=== PATIENT | female | born 1945 | race Caucasian/White ===

== ENCOUNTER 2020-01-17 14:22 | Outpatient (CLI) | payer MEDICARE, SELFPAY ==
--- NOTE | ~2020-01-17 | MM_ITS ---
EXAMINATION: MM screening logan BI w velvet HISTORY: Screening TECHNIQUE: Craniocaudal and mediolateral oblique 3-D tomosynthesis images were obtained and synthetic 2-D images were generated. CAD analysis was submitted and interpreted. COMPARISON: Comparison to multiple prior studies sequentially, with oldest reviewed study dated 10/21. BREAST PARENCHYMAL COMPOSITION: There are scattered areas of fibroglandular density. FINDINGS: There is no evidence of suspicious mass, calcification, or architectural distortion to sugg est malignancy in either breast. There has been no suspicious interval change. IMPRESSION: 1. No mammographic evidence of malignancy. 2. Recommend routine screening mammography in one year. BI-RADS Category 1: Negative Reviewed, dictated and finalized at location A. BULATORY TECHNOLOGIST
== END 2020-01-17 14:23 | disposition home or self-care (01) ==
LOC: ANHIMG 14:27
PROVIDERS: PCP Family Medicine; Visit Provider Nurse Practitioner Obstetrics & Gynecology
DX: Z12.31 Encounter for screening mammogram for malignant neoplasm of breast (principal)
CPT/HCPCS: 77063; 77067

== ENCOUNTER 2020-07-29 21:41 | Emergency (ER) | payer MEDICARE, SELFPAY ==
--- NOTE | ~2020-07-29 | XR_ITS ---
EXAMINATION: XR finger 3rd LT min 2V INDICATION: Third finger post reduction TECHNIQUE: Three views of the left third finger are obtained. COMPARISON: 2003 hours FINDINGS: The previously described dorsal dislocation at the third proximal interphalangeal joint has been reduced. There is minimal persistent dorsal subluxation of the second middle phalanx with respe ct to the proximal phalanx. There is a triangular defect at the palmar base of the third middle phala nx which may represent the tiny osseous fragment seen on the comparison radiograph. There is slight e xtension at the proximal interphalangeal joint. There is soft tissue swelling of the third finger. IMPRESSION: 1. Reduced dislocation of the third proximal interphalangeal joint with mild persistent dorsal sublux ation and extension at the joint with associated cortical defect at the palmar base of the middle pha lanx, possibly reflecting tendinous avulsion. Orthopedic follow-up is recommended. Reviewed, dictated and finalized at location A. IMPRESSION: 1. Reduced dislocation of the third proximal interphalangeal joint with mild pe rsistent dorsal subluxation and extension at the joint with associated cortical defect at the palmar base of the middle phalanx, possibly reflecting tendinous avulsion. Orthopedic follow-up is recommended.
--- NOTE | ~2020-07-29 | XR_ITS ---
EXAMINATION: XR hand LT min 3V INDICATION: Left hand pain, initial encounter TECHNIQUE: Three views of the left hand are obtained. COMPARISON: None available FINDINGS: There is dorsal dislocation and overriding of the third middle phalanx with respect to the proximal phalanx. Bone alignment is otherwise normal. There is soft tissue swelling of the third fing er. A tiny osseous fragment is seen at the base of the second distal phalanx and the lateral view. 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 Cystic change is noted in the lunate. IMPRESSION: 1. Dorsal dislocation and overriding of the third middle phalanx with respect to the proximal phalanx with possible small fracture. Reviewed, dictated and finalized at location A. IMPRESSION: 1. Dorsal dislocation and overriding of the third middle phalanx with respect t o the proximal phalanx with possible small fracture.
[2020-07-29 21:57] VITALS: BP 190/83; PULSE 79; RESP 18; TEMP 36.8; O2SAT 97
--- NOTE | 2020-07-29 22:31 | ED.UPPEXIN ---
HPI - Extremity Injury (Upper) General Chief Complaint: Extremity Injury, Upper Stated Complaint: left middle finger injury Time Seen by Provider: 07/29/20 22:10 Source: RN notes reviewed History of Present Illness HPI narrative: Patient presents to emergency department from home for left third digit pain. Patient states that it was dark and she is trying to the light switch and she hit her finger on the wall states that she had pain at that time with deformity noted to the third digit she denies any other trauma or injury she denies any numbness or tingling in the extremities or any other symptoms at this time Related Data Home Medications Medication Instructions Recorded Confirmed calcium carbonate-vitamin D3 600 cap PO 03/21/19 09/30/19 mg calcium-200 unit capsule levothyroxine 25 mcg tablet 25 mcg PO DAILY 03/21/19 09/30/19 multivit with 1 tablet PO DAILY 03/21/19 09/30/19 mgougrjd-xefg-RH-lutein 8 mg iron-400 mcg-300 mcg tablet naproxen sodium 220 mg tablet 220 mg PO .COMPLEX 03/21/19 09/30/19 omeprazole 20 mg capsule,delayed 20 mg PO DAILY 03/21/19 09/30/19 release Allergies Allergy/AdvReac Type Severity Reaction Status Date / Time adhesive tape Allergy Unknown Unknown Verified 07/22/20 10:42 Sulfa (Sulfonamide Allergy Unknown Unknown Verified 07/22/20 10:42 Antibiotics) Review of Systems Review of Systems: Narrative: Gen.: Denies fevers or chills Musculoskeletal: See HPI Neuro: Denies numbness, tingling, weakness Skin: Denies rash Endo: Denies DM PMFSH Past Medical History Medical History BMI 27.0-27.9,adult ILD (interstitial lung disease) PND (post-nasal drip) Family History Family History Mother Carcinoma of colon Sibling Patient's sister is in good health Father No problems noted. Sibling , blood clot No problems noted. 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 Following commands, speech normal, no focal deficits SKIN:: Warm, dry. Normal Color no rash or lesions Course Course Emergency Course: I discussed with the patient the need for reduction patient states that she is fine with doing the reduction with no digital block at this time and request no pain medication at this time Discussed with Dr. Dobbs presentation work-up agrees with plan for the follow-up in the office at this time Discussed with patient results of workup and diagnosis. Discussed need for follow-up with primary care, proper use of medication, and reasons to return to the emergency department. Patient understands and agrees to current treatment plan. Patient takes Aleve daily and will continue to take for pain Vital Signs Vital signs: Vital Signs Temperature 98.3 F 07/29/20 21:57 Pulse Rate 79 07/29/20 21:57 Respiratory Rate 18 07/29/20 21:57 Blood Pressure 190/83 H 07/29/20 21:57 Pulse Oximetry 97 07/29/20 21:57 Temperature 98.3 F 07/29/20 21:57 Pulse Rate 79 07/29/20 21:57 Respiratory Rate 18 07/29/20 21:57 Blood Pr
[2020-07-29 23:09] VITALS: BP 165/89; PULSE 71; RESP 16; TEMP 36.3; O2SAT 97
== END 2020-07-29 23:10 | disposition home or self-care (01) ==
PROVIDERS: Emergency Provider Emergency Medicine; PCP Family Medicine
DX: S63.283A Dislocation of proximal interphalangeal joint of left middle finger, initial encounter (principal); W22.09XA Striking against other stationary object, initial encounter
CPT/HCPCS: 26770; 73130; 73140; 99285

== ENCOUNTER 2020-09-25 11:00 | Outpatient (RCR) | payer MEDICARE, SELFPAY ==
--- NOTE | 2020-09-09 09:36 | OTOPEVAL ---
OCCUPATIONAL THERAPY INITIAL EVALUATION 09/09/20 Thank you for referring Maira Amado to [facility].? The patient is scheduled to be seen for therapy?1x/week for 4 weeks. Please review, sign, date and return this plan of care CYNTHIA. I agree with and certify that the following plan of care is medically necessary. Referring Physician Date Referring Provider: Raymundo Dobbs MD *OT Outpatient Evaluation Start: 09/09/20 08:38 Therapy Assessment Status Assessment Status Assessment Status Evaluation Outpatient Past Medical History Past Medical History Source of Past Medical History Patient Neurological History Hx Neurological Disorders No Significant History Cardiovascular History Hx Cardiac Disorders No Significant History Respiratory History Hx Other Respiratory Disorders Yes: pulmonary issues treated with Prednisone Gastrointestinal History Hx Gall Bladder Disease Yes: s/p removal Musculoskeletal History Hx Arthritis Yes Hx Fractures Yes: Right distal radius fx s/ p ORIF Hx Other Musculoskeletal Disorders Yes: Right middle finger trigger finger release Endocrine History Hx Endocrine Disorders No Significant History Evaluation Information Problem Diagnosis (L) 3rd PIP dislocation Onset 07/29/20 Subjective Information Patient reports she has been Query Text:As Reported By Patient/ wearing a splint on the middle Family finger ~6 weeks, only removing for bathing. Patient reports she has returned to being independent with ADLs, laundry, gardening, and dishes. She states she has been favoring the right hand for these tasks and has been slowly trying to incorporate the left hand more in daily activities. She reports functional limitations with any activity that requires a fist, such as holding a steering wheel, grabbing a wash cloth, etc. She reports no pain, only stiffness. Prior Level of Function Activity Level (Last 3 Months) Occupation Retired Hand Dominance Right Pain Assessment Timing of Pain Assessment Timing of Pain Assessment Assessment Pain Scale Pain Scale Used Numeric (1 - 10) Self Report Pain Assessment Left Finger, Middle Reported Pain Level 0 Lowest Pain Intensity 0
--- NOTE | 2020-09-25 11:40 | OTOPEVAL ---
OCCUPATIONAL THERAPY RE-EVALUATION AND D/C 09/25/20 Patient presents today for 3rd OT session since 09/09/20. Active ROM has returned to functional limits, with some end-range stiffness that limits a complete hook fist. She is independent with active/passive ROM as well as resistive training with putty. She has had no pain and has returned to normal functioning with ADLs. No further skilled OT indicated at this time. Thank you for referring Maira Amado to [facility].? Please review, sign, date and return this D/C Note CYNTHIA. I agree with and certify that the following plan of care is medically necessary. Referring Physician Date Referring Provider: Raymundo Dobbs MD Evaluation Information Problem Diagnosis (L) 3rd PIP dislocation Onset 07/29/20 Additional Evaluation Detail Patient has participated in 3 outpatient OT sessions for instruction in ROM and was issued putty today for resistive training. Subjective Information Terese reports that she has Query Text:As Reported By Patient/ returned to normal hand use - Family No difficulties with holding a steering wheel or washcloth. Her only complaint is stiffness when first waking up in the morning, but this subsides after she gets moving. Pain Assessment Timing of Pain Assessment Timing of Pain Assessment Re-assessment Pain Scale Pain Scale Used Numeric (1 - 10) Self Report Pain Assessment Left Finger, Middle Reported Pain Level 0 Lowest Pain Intensity 0 Greatest Pain Intensity 0 Pain Score Pain Score 0: Self Report Upper Extremity Range of Motion Finger Range of Motion Left Middle Finger MCP Joint Flexion - Active 90 Middle Finger PIP Joint Flexion - Active 85 Middle Finger DIP Joint Flexion - Active 65 Finger Range of Motion Comments PIP flexion improved from 50* DIP flexion improved from 20* No extension lag noted. Hand Dairy Helper/Pinch Strength Assessment Hand Left Dairy Helper Strength (lbs) 43 Right Dairy Helper Strength (lbs) 46 Extremity Circumference Assessment Circumference Assessment Location Left Body Part Middle Finger Circumference Comments 09/09/20 measurements: P1: 6.5 cm PIPJ: 6.5 cm P2: 5.5 cm 09/25/20 measurements: P1: 6.1 cm PIPJ: 6.3 cm P2: 5.3 cm Right middle finger
== END 2020-09-30 08:34 | disposition home or self-care (01) ==
LOC: ANHOT 11:00
PROVIDERS: PCP Family Medicine; Visit Provider Orthopaedic Surgery
DX: M79.642 Pain in left hand (principal); S69.92XD Unspecified injury of left wrist, hand and finger(s), subsequent encounter
CPT/HCPCS: 97018; 97110; 97140; 97165

== ENCOUNTER 2021-02-16 08:44 | Outpatient (CLI) | payer MEDICARE, SELFPAY ==
--- NOTE | ~2021-02-16 | MM_ITS ---
EXAMINATION: MM screening logan BI w velvet HISTORY: Screening TECHNIQUE: Craniocaudal and mediolateral oblique 3-D tomosynthesis images were obtained and synthetic 2-D images were generated. CAD analysis was submitted and interpreted. COMPARISON: Comparison to multiple prior studies sequentially, with oldest reviewed study dated 11/07. BREAST PARENCHYMAL COMPOSITION: There are scattered areas of fibroglandular density. FINDINGS: There is no evidence of suspicious mass, calcification, or architectural distortion to sugg est malignancy in either breast. There has been no suspicious interval change. IMPRESSION: 1. No mammographic evidence of malignancy. 2. Recommend routine screening mammography in one year. BI-RADS Category 1: Negative Reviewed, dictated and finalized at location A. INSPECTOR
== END 2021-02-16 08:45 | disposition home or self-care (01) ==
LOC: ANHIMG 08:46
PROVIDERS: PCP Family Medicine; Visit Provider Nurse Practitioner Obstetrics & Gynecology
DX: Z12.31 Encounter for screening mammogram for malignant neoplasm of breast (principal)
CPT/HCPCS: 77063; 77067

== ENCOUNTER → 2021-06-16 13:38 | Outpatient (CLI) | payer MEDICARE, SELFPAY ==
--- NOTE | ~2021-06-16 | DEXA_ITS ---
Bone Density Report Name: DILEEP LOVING Age: 75 Sex: Female Ethnicity: White Date of : 1945 Indication: osteopenia; height loss; history of glucocorticoids; postmenopausal Referring Provider: Cindy, Marie Olson Study: Bone densitometry was performed. Exam Date: June 16, 2021 Accession number: [id number] Bone Density: Region BMD T-score Z-score Classification AP Spine (L1-L4) 0.929 -1.1 1.3 Osteopenia Femoral Neck (Left) 0.651 -1.8 0.3 Osteopenia Total Hip (Left) 0.861 -0.7 1.1 Normal Femoral Neck (Right) 0.671 -1.6 0.4 Osteopenia Total Hip (Right) 0.813 -1.1 0.7 Osteopenia Total Hip Mean 0.837 -0.9 0.9 Normal World Health Organization criteria for BMD impression classify patients as: Normal (T-score at or above -1.0), Osteopenia (T-score between -1.0 and -2.5), or Osteoporosis (T-score at or below -2.5). 10-year Fracture Risk(1): Major Osteoporotic Fracture 18% Hip Fracture 4.3% Reported Risk Factors: [place] (), Neck BMD=0.651, BMI=29.8, glucocorticoids (1) FRAX(R) Version 3.08. Fracture probability calculated for an untreated patient. Fracture probability may be lower if the patient has received treatment. Previous Exams: Region Exam Age BMD T-score BMD Change BMD Change Date g/cm2 vs Baseline vs Previous AP Spine(L1-L4) 06/16/2021 75 0.929 -1.1 -0.067 0.027* 12/21/2018 73 0.902 -1.3 -0.095 -0.055* 10/21/2016 70 0.956 -0.8 -0.040 -0.007 09/29/2014 68 0.963 -0.8 -0.033 0.019 07/31/2009 63 0.944 -0.9 -0.053 0.012 07/28/2008 62 0.931 -1.1 -0.065 0.002 07/27/2007 61 0.930 -1.1 -0.067 -0.067 07/16/2004 58 0.996 -0.5 Total Hip(Left) 06/16/2021 75 0.861 -0.7 -0.163 -0.067* 12/21/2018 73 0.928 -0.1 -0.096 0.020 10/21/2016 70 0.908 -0.3 -0.116 -0.072* 09/29/2014 68 0.980 0.3 -0.044 0.029* 07/31/2009 63 0.951 0.1 -0.073 0.015 07/28/2008 62 0.936 -0.1 -0.089 -0.005 07/27/2007 61 0.941 0.0 -0.083 -0.083 07/16/2004 58 1.024 0.7 Total Hip(Right) 06/16/2021 75 0.813 -1.1 -0.206 -0.064* 12/21/2018 73 0.876 -0.5 -0.142 -0.001 10/21/2016 70 0.877 -0.5 -0.141 -0.081* 09/29/2014 68 0.958 0.1 -0.060 -0.001 07/31/2009 63 0.959 0.1 -0.060 0.023 07/28/2008 62 0.935 -0.1 -0.083 0.
== END ==
PROVIDERS: PCP Family Medicine; Visit Provider Nurse Practitioner Obstetrics & Gynecology
DX: M85.88 Other specified disorders of bone density and structure, other site (principal); M85.852 Other specified disorders of bone density and structure, left thigh; M85.851 Other specified disorders of bone density and structure, right thigh
CPT/HCPCS: 77080

== ENCOUNTER 2021-08-04 09:48 | Outpatient (RCR) | payer MEDICARE, SELFPAY ==
--- NOTE | 2021-08-04 11:02 | PTOPEVAL ---
PHYSICAL THERAPY INITIAL EVALUATION AND DISCHARGE SUMMARY. Thank you for referring Maira Amado to [facility].? The patient does not require any skilled physical therapy services at this time. Please review, sign, date and return this plan of care CYNTHIA. I agree with and certify that the following plan of care is medically necessary. Referring Physician Date Attending Provider: Kishore Castano MD *PT Outpatient Evaluation Start: 08/04/21 Evaluation Information Subjective Information Pt states she mentioned to her Query Text:As Reported By Patient/ primary care doctor that she Family has had a little bit decreased balance in the last few years . She states she is able to carry a basket of laundry up/ down the stairs, does yard work , cleans her house, climbs up and down ladders, all without issues. She declines any falls in the last year. She reports occasional arthritic pain in her knees. Pain Assessment Pain Score 0: Self Report Lower Extremity Range of Motion General Lower Extremity Range of Motion WFL/Left,WFL/Right Lower Extremity Muscle Strength Testing General Lower Extremity Strength WFL/Left,WFL/Right Gross Lower Extremity Strength BLE grossly 4+/5 Balance Assessment Abel Balance Assessment ABEL Balance Evaluation Total Score 54/56 Comments L tandem: 22 s R tandem: 30s - test stopped L single leg stance: 6s R single leg stance: 10s Time Up Go (TUG) Timed Up and Go Test (TUG) (Seconds) 7 Assistive Devices None 5 Time Sit to Stand Time in Seconds 10 5 Time Sit to Stand Comments without the use of UEs Dynamic Gait Index Total Score (/24) 23/24 Gait Assessment Other Gait Observations no notable gait deviations 2 Minute Walk Total Distance Walked (feet) 490 2 Minute Walk Gait Speed Score (feet/ 4.08 Stair Climbing Assessment Stair Climbing Assistive Devices None Number of Steps Climbed (Steps) 4 Number of Repetitions (Repetitions) 2 Stair Climbing Comments no notable deviations Safety Assessment Factors Affecting Safety No Concerns General Exercise General Exercises Exercise Description - educated on starting daily Query Text:Record Sets, Reps, walking program aiming for 15 Resistance, and Position mins a day - tandem walking 5x10ft - sit to stand without UE support x10
== END 2021-08-05 11:58 | disposition home or self-care (01) ==
LOC: ANHPT 09:48
PROVIDERS: PCP Family Medicine; Referring Provider Family Medicine; Visit Provider Family Medicine
DX: R26.89 Other abnormalities of gait and mobility (principal)
CPT/HCPCS: 97161; 97530

== ENCOUNTER 2022-04-08 07:46 | Outpatient (CLI) | payer MEDICARE, SELFPAY ==
--- NOTE | ~2022-04-08 | MM_ITS ---
EXAMINATION: MM screening logan BI w velvet HISTORY: Screening TECHNIQUE: Craniocaudal and mediolateral oblique 3-D tomosynthesis images were obtained and synthetic 2-D images were generated. CAD analysis was submitted and interpreted. COMPARISON: Comparison to multiple prior studies sequentially, with oldest reviewed study dated 10/21. BREAST PARENCHYMAL COMPOSITION: There are scattered areas of fibroglandular density. FINDINGS: Stable benign-appearing mass lower inner quadrant of the right breast. There is no evidence of suspicious mass, calcification, or architectural distortion to suggest malignancy in either breas t. There has been no suspicious interval change. IMPRESSION: 1. No mammographic evidence of malignancy. 2. Recommend routine screening mammography in one year. BI-RADS Category 2: Benign finding(s). Reviewed, dictated and finalized at location A. STIGATION MANAGER
== END 2022-04-08 07:47 | disposition home or self-care (01) ==
LOC: ANHIMG 07:49
PROVIDERS: PCP Family Medicine; Visit Provider Obstetrics & Gynecology
DX: Z12.31 Encounter for screening mammogram for malignant neoplasm of breast (principal)
CPT/HCPCS: 77063; 77067

== ENCOUNTER 2022-06-30 02:07 | Day surgery (SDC) | payer MEDICARE, SELFPAY ==
[2022-06-21 15:22] VITALS: BMI 29.1
[2022-06-30 10:30] VITALS: BP 138/84; PULSE 97; RESP 20; TEMP 36.3; O2SAT 98; BMI 28.6
[2022-06-30] MEDS: LACTATED RINGERS 1,000 ML 150 ML IV CONT (10:35)
--- NOTE | 2022-06-30 10:36 | WPDANESEPPF ---
Anes - Initial Pre Proc Eval Procedure: Operation Date: 06/30/22 11:30 Proposed Procedures p Screening Colonoscopy - Praveen Lala MD Date/Time: 06/30/22 10:36 Surgeon: Praveen Lala MD Pre Op Diagnosis: neoplasm screening Patient Data Age: 76 Gender: F Height: 1.65 m Weight: 78 kg Last Vital Signs Temp 97.3 F L 06/30/22 10:30 Pulse 97 06/30/22 10:30 Resp 20 06/30/22 10:30 BP 138/84 06/30/22 10:30 Pulse Ox 98 06/30/22 10:30 O2 Del Method Room Air 06/30/22 10:30 Allergies Allergy/AdvReac Type Severity Reaction Status Date / Time adhesive tape Allergy Unknown Unknown Verified 06/30/22 10:26 Sulfa (Sulfonamide Allergy Unknown Unknown Verified 06/30/22 10:26 Antibiotics) Home Medications Medication Instructions Recorded Confirmed Type calcium carbonate 600 mg-vitamin 1 cap PO DAILY 03/21/19 06/30/22 History D3 5 mcg (200 unit) capsule (Calcium 600 + D(3)) multivit with 1 tablet PO DAILY 03/21/19 06/30/22 History fushtxiz-glhv-TU-lutein 8 mg iron-400 mcg-300 mcg tablet (Centrum Silver Women) naproxen sodium 220 mg tablet 220 mg PO .COMPLEX 03/21/19 06/21/22 History (Aleve) omeprazole 20 mg capsule,delayed 20 mg PO DAILY 03/21/19 06/21/22 History release levothyroxine 50 mcg tablet 50 mcg PO DAILY #60 tabs 04/29/22 06/30/22 Rx bdeesmgqrxe-rbb-yumjfletm-hrb 1 tablet PO DAILY 05/20/22 06/30/22 History 149-hyalur 500 mg-500 mg-66.7 mg tablet (Zevwmlpvzad-Aegxicebiyr-WQJ (with antiox)) sodium,potassium,mag sulfates 17.5 See Rx Instructions PO .COMPLEX 06/14/22 06/30/22 Rx gram-3.13 gram-1.6 gram oral soln #354 mL (Suprep Bowel Prep Kit) lisinopril 5 mg tablet 5 mg PO DAILY #90 tabs 06/15/22 06/30/22 Rx Lactobacillus 1 cap PO DAILY 06/21/22 06/30/22 History acidophilus-Bifidobac.animalis 2.5 billion cell capsule (Daily Probiotic) biotin 10,000 mcg chewable tablet 10,000 mcg PO DAILY 06/21/22 06/30/22 History (Hair, Skin and Nails (biotin)) psyllium husk (with sugar) 2 gram 2 wafer PO DAILY 06/21/22 06/21/22 History oral wafer (Metamucil Fiber Thin) Patient hx anesthesia problems: none Family hx anesthesia problems: none Results Review: All pre-operative results and documents have been reviewed as part of the pre-operative evaluation. [facility] Past Medical History Medical History Balance problem BMI 27.0-27.9,adult BMI 29.0-29.9,adult Cough Dislocation of digit of hand left third PIP ILD (interstitial lung disease) Melancholy PND (post-nasal drip) Trigger finger, left middle finger Family History Family History Mother Carcinoma of colon Sibling Patient's sister is in good health Father Incontinent of urine Heart disease Skin cancer Sibling , blood clot Blood clot in vein Social History Social History Smoking status: Former smoker Tobacco type: cigarettes Second hand tobacco smoke exposure: No Smoking end date: 03/13/72 Alcohol intake: current Drinks per week: 7 Substance use: never Substance use type: does not use Lack of Transportation: No Lack of Food: Never True Current Housing: I Have Housing Concerned About Future Housing: No Difficulty Paying Gas/Electric Bills: No Difficulty Paying for Meds: No Currently Unemployed: No Education: Bachelor's Degree Difficulty w/ Childcare or Family Care: No Living arrangements: with family Occupation/Education: 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
--- NOTE | 2022-06-30 10:40 | PM.HPGS ---
History of Present Illness History of Present Illness Consent: Risks, benefits, and alternatives have been discussed and questions answered. Patient agrees to proceed with procedure. Chief complaint: neoplasm screening Narrative: Maira Amado is a 76 year old female Presents for screening colonoscopy. Patient's current weight appetite and bowel movements are normal. She denies abdominal pain. She has had no bleeding. Family history is significant that her mother had colon cancer. Patient's previous colonoscopy in 2017 was unremarkable. Review of Systems Review of Systems: Review of systems noncontributory. FOR[facility]LY [facility] Past Medical History Medical History Balance problem BMI 27.0-27.9,adult BMI 29.0-29.9,adult Cough Dislocation of digit of hand left third PIP ILD (interstitial lung disease) Melancholy PND (post-nasal drip) Trigger finger, left middle finger Family History Family History Mother Carcinoma of colon Sibling Patient's sister is in good health Father Incontinent of urine Heart disease Skin cancer Sibling , blood clot Blood clot in vein Social History Social History Smoking status: Former smoker Tobacco type: cigarettes Second hand tobacco smoke exposure: No Smoking end date: 03/13/72 Alcohol intake: current Drinks per week: 7 Substance use: never Substance use type: does not use Lack of Transportation: No Lack of Food: Never True Current Housing: I Have Housing Concerned About Future Housing: No Difficulty Paying Gas/Electric Bills: No Difficulty Paying for Meds: No Currently Unemployed: No Education: Bachelor's Degree Difficulty w/ Childcare or Family Care: No Living arrangements: with family Occupation/Education: 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 Gender identity (if verbalized by the patient): Female Spiritual care concerns: No Meds Home Medications and Allergies Home Medications Medication Instructions Recorded Confirmed Type calcium carbonate 600 mg-vitamin 1 cap PO DAILY 03/21/19 06/30/22 History D3 5 mcg (200 unit) capsule (Calcium 600 + D(3)) multivit with 1 tablet PO DAILY 03/21/19 06/30/22 History yjoidbpo-hyoo-QA-lutein 8 mg iron-400 mcg-300 mcg tablet (Centrum Silver Women) naproxen sodium 220 mg tablet 220 mg PO .COMPLEX 03/21/19 06/21/22 History (Aleve) omeprazole 20 mg capsule,delayed 20 mg PO DAILY 03/21/19 06/21/22 History release levothyroxine 50 mcg tablet 50 mcg PO DAILY #60 tabs 04/29/22 06/30/22 Rx sdnflnjwsnt-ckv-wxccpdypl-hrb 1 tablet PO DAILY 05/20/22 06/30/22 History 149-hyalur 500 mg-500 mg-66.7 mg tablet (Cngdyembzpy-Daulolunupu-RLQ (with antiox)) sodium,potassium,mag sulfates 17.5 See Rx Instructions PO .COMPLEX 06/14/22 06/30/22 Rx gram-3.13 gram-1.6 gram oral soln #354 mL (Suprep Bowel Prep Kit) lisinopril 5 mg tablet 5 mg PO DAILY #90 tabs 06/15/22 06/30/22 Rx Lactobacillus 1 cap PO DAILY 06/21/22 06/30/22 History acidophilus-Bifidobac.animalis 2.5 billion cell capsule (Daily Probiotic) biotin 10,000 mcg chewable tablet 10,000 mcg PO DAILY 06/21/22 06/30/22 History (Hair, Skin and Nails (biotin)) psyllium husk (with sugar) 2 gram 2 wafer PO DAILY 06/21/22 06/21/22 History oral wafer (Metamucil Fiber Thin) Allergies Allergy/AdvReac Type Severity Reaction Status Date / Time adhesive tape Allergy Unknown Unknown Verified 06/30/22 10:26 Sulfa (Sulfonamide Allergy Unknown Unknown Verified 06/30/22 10:26 Antibiotics) Vital Signs Vital Signs - 24 hr 06/30/22 10:30 Temperature 97.3 F L Pulse Rate 97 Respiratory Rate 20 Blood Pressure 138/84 Pulse Oximetry 98 Oxygen Delivery Room
[2022-06-30 11:27] VITALS: BP 136/75; PULSE 84; RESP 23; O2SAT 96
[2022-06-30 11:37] VITALS: BP 136/82; PULSE 87; RESP 25; O2SAT 94
[2022-06-30 11:47] VITALS: BP 128/78; PULSE 77; RESP 23; O2SAT 95
== END 2022-06-30 11:51 | disposition home or self-care (01) ==
PROVIDERS: PCP Family Medicine; Visit Provider Internal Medicine Gastroenterology
PROC: 0DJD8ZZ Inspection of Lower Intestinal Tract, Via Natural or Artificial Opening Endoscopic (ICD-10-PCS; CPT 45378; principal; 2022-06-30 11:30)
DX: Z12.11 Encounter for screening for malignant neoplasm of colon (principal); K64.8 Other hemorrhoids; K57.30 Diverticulosis of large intestine without perforation or abscess without bleeding; Z80.0 Family history of malignant neoplasm of digestive organs; Z87.891 Personal history of nicotine dependence
CPT/HCPCS: G0105; J2704; J7120

== ENCOUNTER → 2023-01-18 15:07 | Outpatient (CLI) | payer MEDICARE, SELFPAY ==
--- NOTE | ~2023-01-18 | XR_ITS ---
EXAMINATION: XR chest 2V DATE: 01/18/2023 16:06 INDICATION: Acute bronchitis, unspecified. TECHNIQUE: Frontal and lateral views of the chest were obtained. COMPARISON: Chest 2 views 03/23/2017 FINDINGS: There are airspace opacities in right middle lobe and right lower lobe, consistent with pne umonia. No pleural effusion or pneumothorax. The heart size is normal. There are surgical clips in th e abdomen. IMPRESSION: 1. Airspace opacities in right middle lobe and right lower lobe, consistent with pneumonia. Reviewed, dictated and finalized at location E. BUSINESS ANALYST IMPRESSION: 1. Airspace opacities in right middle lobe and right lower lobe, consistent wit h pneumonia.
== END ==
PROVIDERS: PCP Family Medicine; Visit Provider Physician Assistant Medical
DX: J20.9 Acute bronchitis, unspecified (principal); R04.2 Hemoptysis; R91.8 Other nonspecific abnormal finding of lung field
CPT/HCPCS: 71046

== ENCOUNTER 2023-01-25 13:48 | Outpatient (CLI) | payer MEDICARE, SELFPAY ==
--- NOTE | ~2023-01-25 | CT_ITS ---
CT Scan of the Chest without Contrast: Clinical Indication: Hemoptysis Technique: Contiguous sections were acquired throughout the chest without intravenous contrast. Dose reduction technique was used on this scan by utilizing automated exposure control and iterative recon struction technique. The dose-length product (DLP) was 180.91 mGy-cm. Findings: There is no evidence of any significant mediastinal, hilar or axillary lymphadenopathy. The mediastin al soft tissues appear normal. There is no evidence of pleural or pericardial effusion. 4 mm posterior right upper lobe pulmonary nodule noted (axial image 33). There is scarring or linear chronic atelectasis in the right middle lobe. Calcified right middle lobe granuloma noted. There is m inimal patchy groundglass opacity at the lung bases. Images through the upper abdomen reveal no abnormalities. Impression: No distinct etiology for hemoptysis identified. 4 mm right upper lobe pulmonary nodule. According to Fleischner Society criteria, for a low-risk tanesha ent, no further follow-up required. For a patient, consider 12 month follow-up CT. Minimal patchy groundglass opacity at the lung bases. This is nonspecific, with a broad differential diagnosis, including hypoventilatory/atelectatic change, bronchiolitis, minimal pulmonary edema, or m inimal chronic interstitial change. Reviewed, dictated and finalized at location M. STONE INSPECTOR REPAIRER Impression: No distinct etiology for hemoptysis identified. 4 mm right upper lobe pulmonary nodule. According to Fleischner Society criteri a, for a low-risk patient, no further follow-up required. For a patient, consid er 12 month follow-up CT. Minimal patchy groundglass opacity at the lung bases. This is nonspecific, with a broad differential diagnosis, including hypoventilatory/atelectatic change, bronchiolitis, minimal pulmonary edema, or minimal chronic interstitial change.
== END 2023-01-25 13:49 | disposition home or self-care (01) ==
PROVIDERS: PCP Family Medicine; Visit Provider Physician Assistant Medical
DX: R04.2 Hemoptysis (principal); R91.1 Solitary pulmonary nodule; R91.8 Other nonspecific abnormal finding of lung field
CPT/HCPCS: 71250

== ENCOUNTER 2023-05-30 15:34 | Outpatient (CLI) | payer MEDICARE, SELFPAY ==
--- NOTE | ~2023-05-30 | MM_ITS ---
EXAMINATION: MM screening logan BI w velvet HISTORY: Screening TECHNIQUE: Craniocaudal and mediolateral oblique 3-D tomosynthesis images were obtained and synthetic 2-D images were generated. CAD analysis was submitted and interpreted. COMPARISON: Comparison to multiple prior studies sequentially, with oldest reviewed study dated 11/03. BREAST PARENCHYMAL COMPOSITION: Not dense: There are scattered areas of fibroglandular density. FINDINGS: Stable benign-appearing low-density circumscribed mass in the lower inner quadrant of the r ight breast. There is no evidence of suspicious mass, calcification, or architectural distortion to s uggest malignancy in either breast. There has been no suspicious interval change. IMPRESSION: 1. No mammographic evidence of malignancy. 2. Recommend routine screening mammography in one year. BI-RADS Category 2: Benign finding(s). Reviewed, dictated and finalized at location A.
== END 2023-05-30 15:35 | disposition home or self-care (01) ==
PROVIDERS: PCP Family Medicine; Visit Provider Obstetrics & Gynecology
DX: Z12.31 Encounter for screening mammogram for malignant neoplasm of breast (principal)
CPT/HCPCS: 77063; 77067

== ENCOUNTER 2024-02-02 10:54 | Observation (INO) | payer MEDICARE, SELFPAY ==
[2024-02-02] VITALS (8 sets, daily range): BP systolic 128–167; BP diastolic 72–90; PULSE 70–90; RESP 12–23; TEMP 36.4–36.7; O2SAT 94–98; BMI 27.3
--- NOTE | ~2024-02-02 | CT_ITS ---
EXAMINATION: CTA brain carotid DATE: 02/02/2024 15:14 INDICATION: Transient ischemic attack. TECHNIQUE: Computed tomographic angiography (CTA) of the head was performed with 100 mL Omnipaque-350 intravenous contrast. CTA of the neck was performed with intravenous contrast. Automated exposure co ntrol and iterative reconstruction technique were employed. The dose-length product was 843.80 mGy-cm . Maximum intensity projection and volume rendered 3D-reconstructions were created by the flck.me t on a separate workstation. COMPARISON: Head CT 02/02/2024 FINDINGS: HEAD CTA: There are scattered areas of low attenuation in the cerebral white matter. There is no intr acranial hemorrhage, acute infarction, or abnormal intracranial mass lesion. The ventricles are robina l in size. There is mild mucosal thickening in right maxillary sinus. The mastoid air cells are robina l. The orbits are normal. The vertebral arteries are codominant. There is no significant stenosis of basilar artery or the posterior cerebral arteries. There is no significant stenosis of the intracrani al internal carotid arteries or anterior or middle cerebral arteries. Anterior communicating artery i s normal. The posterior communicating arteries are normal. There is no aneurysm. NECK CTA: There are no pathologically enlarged lymph nodes. There is no significant stenosis of the v ertebral arteries. There is no visible plaque in the proximal internal carotid arteries. There is 0% stenosis of the proximal right internal carotid artery relative to normal distal artery lumen diamete r (NASCET criteria). There is 0% stenosis of the proximal left internal carotid artery relative to no rmal distal artery lumen diameter. There is mild cervical spondylosis. IMPRESSION: 1. Mild nonspecific cerebral white matter disease, which likely represents chronic small vessel ische stephen disease. 2. No aneurysm or significant intracranial arterial stenosis. 3. 0% stenosis of the proximal internal carotid arteries relative to normal distal artery lumen diame ters (NASCET criteria). Reviewed, dictated and finalized at location A. [employer] EX[employer]SEKEEPER IMPRESSION: 1. Mild nonspecific cerebral white matter disease, which likely represents duct layer shantelle small vessel ischemic disease. 2. No aneurysm or significant intracranial arterial stenosis. 3. 0% stenosis of the proximal internal carotid arteries relative to normal dis sven artery lumen diameters (NASCET criteria).
--- NOTE | ~2024-02-02 | XR_ITS ---
EXAMINATION: XR chest 1V DATE: 02/02/2024 13:23 INDICATION: Transient ischemic episode and lightheadedness TECHNIQUE: frontal view of the chest was obtained. COMPARISON: Chest radiograph dated and CT dated 01/25/2023 FINDINGS: Mild opacities at the bilateral lung bases with indistinctness to the left hemidiaphragm. Remainder t he lungs are clear. No pulmonary edema, pleural effusion or pneumothorax. The cardiomediastinal silho uette is normal. Cholecystectomy clips in the right upper quadrant. IMPRESSION: 1. Mild bibasilar opacities which could represent atelectasis or pneumonia. Reviewed, dictated and finalized at location B. [employer]
--- NOTE | ~2024-02-02 | CT_ITS ---
Non-contrast Head CT History: TIA, right arm weakness Technique: Axial non-contrast imaging of the brain was performed. Dose reduction technique was used on this scan by utilizing automated exposure control and iterative reconstruction technique. The dose -length product (DLP) was 605.33 mGy-cm. Findings: There is no evidence of intracranial hemorrhage, mass lesion, or acute infarct. Brain par enchyma appears normal. The ventricles and subarachnoid spaces are normal in size. The calvarium ap pears normal. The visualized paranasal sinuses and mastoid air cells are clear. Impression: No significant abnormality seen. Reviewed, dictated and finalized at location . SINGER Impression: No significant abnormality seen.
--- NOTE | 2024-02-02 12:26 | ECG_ITS ---
Test Date: 2024-02-02 12:43:02 Measurements Intervals [place] Rate: 75 P: 63 AL: 149 QRS: -11 QRSD: 98 T: 26 QT: 373 QTc: 417 Interpretive Statements SINUS RHYTHM CONSIDER INFERIOR INFARCT, AGE INDETERMINATE BASELINE ARTIFACT- I, AVR, AVL, V1, V5 ABNORMAL ECG No previous available for comparison Electronically Signed On 02-02-2024 12:47:07 ETL BI DEVELOPER by Kartik Garcia D.O.
--- NOTE | 2024-02-02 12:50 | ED_ITS ---
HPI - Dizziness General Chief Complaint: Dizziness Stated Complaint: dizzy, ULE tingling, now resolved Time Seen by Provider: 02/02/24 12:01 History of Present Illness HPI Narrative: 78-year-old female with a history of hypertension, hypothyroidism presenting with an episode of hand numbness. States that she was dipping pretzels in chocolate this morning when she noticed that her right hand was unable to outpatient psychiatrist the utensils. States that it felt weak and then she noticed numbness that started creeping up her right arm. She felt lightheaded and flushed and went to tell her that something was wrong. States that she sat down and her symptoms improved over the next 15 minutes. She currently denies any complaints. Denies prior similar episodes. No chest pain or shortness of breath. Related Data Home Medications Medication Instructions Recorded Confirmed calcium 600 mg (as 1 cap PO DAILY 03/21/19 02/02/24 carbonate)-vitamin D3 5 mcg (200 unit) capsule (Calcium 600 + D(3)) bsbvnddu-cvhj-fuhz 8 mg-folic 400 1 tablet PO DAILY 03/21/19 02/02/24 mcg-K 50 mcg-lutein 300 mcg tablet (Centrum Silver Women) naproxen sodium 220 mg tablet 220 mg PO DAILY 03/21/19 02/02/24 (Aleve) omeprazole 20 mg capsule,delayed 20 mg PO DAILY 03/21/19 02/02/24 release vxaembxdwvq-hze-dcvhaakgz-hrb 1 tablet PO Q12H 05/20/22 02/02/24 149-hyalur 500 mg-500 mg-66.7 mg tablet (Lktemwagady-Tgtqmlrslxy-OYL (with antiox)) Lactobacillus 1 cap PO DAILY 06/21/22 02/02/24 acidophilus-Bifidobac.animalis 2.5 billion cell capsule (Daily Probiotic) biotin 10,000 mcg chewable tablet 10,000 mcg PO DAILY 06/21/22 02/02/24 (Hair, Skin and Nails (biotin)) psyllium husk (with sugar) 2 gram 1 wafer PO HS 06/21/22 02/02/24 oral wafer (Metamucil Fiber Thin) Allergies Allergy/AdvReac Type Severity Reaction Status Date / Time adhesive tape Allergy Unknown Unknown Verified 02/02/24 12:47 Sulfa (Sulfonamide Allergy Unknown Unknown Verified 02/02/24 12:47 Antibiotics) Review of Systems Review of Systems: All systems reviewed & are unremarkable except as noted in HPI and below PMFSH Past Medical History Medical History (Updated 02/04/24 @ 18:28 by Rafaela Fontanez MD) Collagen vascular disease Essential hypertension Gastro-esophageal reflux disease without esophagitis Hypothyroidism, unspecified Interstitial lung disease Pulmonary nodule seen on imaging study Surgical History Surgical History (Updated 02/02/24 @ 21:53 by Zarina Ragsdale PA-C) History of cholecystectomy History of open reduction and internal fixation (ORIF) procedure repair of right wrist fracture Status post trigger finger release Family History Family History Mother Carcinoma of colon Sibling Patient's sister is in good health Father Incontinent of urine Heart disease Skin cancer Sibling , blood clot Blood clot in vein Social History Social History (Updated 02/02/24 @ 21:55 by Zarina Ragsdale PA-C) Social History: Surrogate medical decision maker: Beto Amado, spouse. Code status: Full code. Smoking status: Former smoker Second hand tobacco smoke exposure: No Alcohol intake: current Drinks per week: 7 Substance use: never Substance use type: does not use Do You Feel Safe in your Home?: Yes Lack of Transportation: No Lack of Food: Never True Current Housing: I Have Housing Concerned About Future Housing: No Difficulty Paying Gas/Electric Bills: No Difficulty Paying for Meds: No Currently Unemployed: No Education: Bachelor's Degree Difficulty w/ Childcare or Family Care: No Living arrangements: with family Additional living arrangements comments: [place] in [place] Occupation/Education: 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 EYES: PERRLA and EOMI. ENT: Mucous membranes moist. NECK: Supple. CHEST: No respiratory distress. HEART: Regular rate and rhythm ABDOMEN: Nondistended EXTREMITIES: Normal range of motion. No edema. SKIN: Warm, dry, no rash. NEURO: No focal deficits. Alert and oriented x3. No pronator drift, qfwcwp-ir-mlro intact, no dysarthria or aphasia, no facial droop PSYCH: Normal mood and affect. Course Vital Signs Vital signs: Vital Signs Temperature 97.6 F 02/02/24 10:59 Pulse Rate 90 02/02/24 10:59 Respiratory Rate 16 02/02/24 10:59 Blood Pressure 141/89 H 02/02/24 10:59 Pulse Oximetry 98 02/02/24 10:59 Oxygen Delivery Room Air 02/02/24 10:59 Temperature 97.7 F 02/03/24 14:00 Pulse Rate 68 02/03/24 14:00 Respiratory Rate 20 02/03/24 14:00 Blood Pressure 142/72 H 02/03/24 14:00 Pulse Oximetry 93 02/03/24 14:00 Oxygen Delivery Room Air 02/02/24 20:00 MDM - Dizziness MDM Narrative Medical decision making narrative: 78-year-old female presenting with an episode of right arm weakness and numbness. Vitals are stable. Exam remarkable for the above. EKG per my interpretation shows normal sinus rhythm, no ST elevations or depressions. Blood work without significant abnormalities. CT brain without acute abnormalities. UA is concerning for UTI. Patient given a dose of IV Rocephin. Chest x-ray with atelectasis, no other acute abnormalities. CTA shows no significant stenoses. Patient remains at baseline. Feel she would benefit from admission for TIA workup especially as she is [place] to be leaving the country soon. She is agreeable this plan. I spoke with the hospitalist who has accepted her for admission. Differential Diagnosis Differential diagnosis: Likely orthostatic hypotension, transient cerebral ischemia and other (UTI, hand paresthesias) Medical Records Attestation: I reviewed the patient's medical records. Lab Data Attestation: I reviewed the patient's lab results. 02/02/24 12:41 02/02/24 12:41 Labs: Lab Results 02/02/24 02/02/24 Range/Units 12:41 13:32 WBC 6.8 (4.5-10.0) K/mm3 RBC 4.45 (4.2-5.4) M/mm3 Hgb 14.5 (12.0-15.0) g/dL Hct 41.8 (37.0-47.0) % MCV 93.9 (80-100) fl MCH 32.6 (26-34) pg MCHC 34.7 (32-36) g/dl RDW 13.7 (11.5-14.5) % Plt Count 223 (150-375) k/mm3 MPV 10.8 H (7.4-10.4) fl Immature Gran % (Auto) 0.1 (0-0.5) % Neut % (Auto) 73.8 H (45.5-73.1) % Lymph % (Auto) 18.9 (18.3-44.2) % [place] % (Auto) 6.5 (2.6-8.5) % Eos % (Auto) 0.3 (0-4.4) % Baso % (Auto) 0.4 (0.2-1.2) % Lymph # (Auto) 1.29 (0.9-3.2) K/mm3 [place] # (Auto) 0.4 (0.1-0.6) K/mm3 Eos # (Auto) 0.0 (0-0.3) K/mm3 Baso # (Auto) 0.0 (0.0-0.1) K/mm3 Abs Immat Gran (auto) 0.01 (0.00-0.031) K/mm3 Absolute Neuts (auto) 5.0 (1.3-6.7) K/mm3 Absolute Nucleated RBC 0.000 (0.0-0.012) K/mm3 Nucleated RBC % 0.0 (0.0-0.2) % PT 13.6 (11.1-14.7) Seconds INR 1.0 APTT 26.3 (22.3-36.8) Seconds Sodium 137 (137-145) mmol/L Potassium 4.1 (3.4-5.0) mmol/L Chloride 104 (98-107) mmol/L Carbon Dioxide 27 (22-30) mmol/L Anion Gap 6 (4-12) mmol/L BUN 16 (7-17) mg/dL Creatinine 0.80 (0.7-1.0) mg/dL Estim Creat Clear Calc 48 ml/min Estimated GFR > 60 (59 - ) Glucose 86 (65-110) mg/dL Calcium 9.8 (8.4-10.2) mg/dL Magnesium 1.7 (1.6-2.3) mg/dL Total Bilirubin 0.7 (0.2-1.3) mg/dL AST 29 (14-36) U/L ALT 18 (6-35) U/L Alkaline Phosphatase 80 (38-126) U/L Troponin I < 0.012 (0.000-0.034) ng/mL Total Protein 8.0 (6.3-8.2) g/dL Albumin 4.2 (3.5-5.1) g/dL Urine Color Yellow (Yellow) Urine Appearance Clear (Clear) Urine pH 7.5 (5.0-9.0) Ur Specific [place] 1.009 (1.001-1.035) Urine Protein Negative (Negative) mg/dL Urine Glucose (UA) Negative (Negative) mg/dL Urine Ketones Negative (Negative) mg/dL Ur Blood (Man) Negative (Negative) Urine Nitrate Positive H (Negative) Urine Bilirubin Negative (Negative) Urine Urobilinogen 0.2 (<2.0) mg/dL Leukocyte Esterase Rfl 1+ H (Negative) BRENDAN/UL Urine RBC 0-2 (0-2) /hpf Urine WBC 6-10 H (0-3) /hpf Ur Squamous Epith Cells None seen (Few) /hpf Urine Bacteria 4+ /hpf Urine Casts 0-2 Imaging Data Radiologist's impression: ITS Impressions Head CT 02/02/24 13:22 Impression: No significant abnormality seen. Chest X-Ray 02/02/24 13:25 IMPRESSION: 1. Mild bibasilar opacities which could represent atelectasis or pneumonia. Head/Neck CTA 02/02/24 15:15 IMPRESSION: 1. Mild nonspecific cerebral white matter disease, which likely represents chronic small vessel ischemic disease. 2. No aneurysm or significant intracranial arterial stenosis. 3. 0% stenosis of the proximal internal carotid arteries relative to normal distal artery lumen diameters (NASCET criteria). Critical Care Time Critical Care Time Critical Care Time: No Discharge Plan Discharge Clinical Impression: Numbness of right hand, UTI (urinary tract infection) Patient Disposition: Still a Patient Condition: Stable
[2024-02-02 12:57] LABS: Basophils Percent Auto 0.4 % (0.2-1.2); Eosinophils Percent Auto 0.3 % (0-4.4); Hematocrit 41.8 % (37.0-47.0); Hemoglobin 14.5 g/dL (12.0-15.0); Immature Granulocyte Absolute 0.01 K/mm3 (0.00-0.031); Immature Granulocyte Percent A 0.1 % (0-0.5); Lymphocytes Absolute Auto 1.29 K/mm3 (0.9-3.2); Lymphocytes Percent Auto 18.9 % (18.3-44.2); Mean Corpuscular HGB Conc 34.7 g/dl (32-36); Mean Corpuscular Hemoglobin 32.6 pg (26-34); Mean Corpuscular Volume 93.9 fl (80-100); Mean Platelet Volume 10.8 fl (7.4-10.4); Monocytes Absolute Auto 0.4 K/mm3 (0.1-0.6); Monocytes Percent Auto 6.5 % (2.6-8.5); Neutrophils Percent Auto 73.8 % (45.5-73.1); Platelet Count Result 223 k/mm3 (150-375); Red Blood Count 4.45 M/mm3 (4.2-5.4); Red Cell Distribution Width 13.7 % (11.5-14.5); White Blood Count 6.8 K/mm3 (4.5-10.0)
[2024-02-02 13:07] LABS: Prothrombin Time 13.6 Seconds (11.1-14.7)
[2024-02-02 13:08] LABS: Partial Thromboplastin Time 26.3 Seconds (22.3-36.8)
[2024-02-02 13:11] LABS: Alanine Aminotransferase 18 U/L (6-35); Albumin Level 4.2 g/dL (3.5-5.1); Alkaline Phosphatase 80 U/L (38-126); Anion Gap 6 mmol/L (4-12); Aspartate Amino Transferase 29 U/L (14-36); Bilirubin,Total 0.7 mg/dL (0.2-1.3); Blood Urea Nitrogen 16 mg/dL (7-17); Calcium 9.8 mg/dL (8.4-10.2); Carbon Dioxide 27 mmol/L (22-30); Chloride 104 mmol/L (98-107); Estimated CRCL calculation 48 ml/min; Estimated Glomerular Filt Rate > 60; Glucose 86 mg/dL (65-110); Magnesium 1.7 mg/dL (1.6-2.3); Potassium 4.1 mmol/L (3.4-5.0); Sodium 137 mmol/L (137-145)
[2024-02-02 13:22] LABS: Troponin I < 0.012 ng/mL (0.000-0.034)
[2024-02-02] MEDS: SODIUM CHLORIDE 0.9% IV 1,000 ML 999 ML IV CONT (13:36)
[2024-02-02 13:44] LABS: Add Urine Microscopic? YES; Appearance Urine Clear (Clear); Bacteria Urine 4+ /hpf; Bilirubin Urine Negative (Negative); Blood Urine Negative (Negative); Color Urine Yellow (Yellow); Glucose Urine UA Negative (Negative); Ketones Urine Negative (Negative); Leukocyte Esterase Ur 1+ LEU/UL (Negative); Nitrate Urine Positive (Negative); Non Pathogenic Casts 0-2; Protein Urine Negative (Negative); RBC Urine 0-2 /hpf (0-2); Specific Grav Ur 1.009 (1.001-1.035); Squamous Epithelial Cell Urine None Seen /hpf (Few); Urobilinogen Urine 0.2 mg/dL (<2.0); pH Urine 7.5 (5.0-9.0)
[2024-02-02] MEDS: cefTRIAXone 2 GM/NS 100 ML 2 GM/100 ML BAG IVPB (14:00)
[2024-02-02 16:22] LABS: Troponin I < 0.012 ng/mL (0.000-0.034)
--- NOTE | 2024-02-02 17:15 | P.HP_ITS ---
H&P: HPI History of Present Illness Date/Time: 02/02/24 17:15 Chief Complaint: Right hand numbness. Narrative: This is a very pleasant 78-year-old right-handed female with hypertension, gastroesophageal reflux disease, hypothyroidism, collagen vascular disease, interstitial lung disease who presented to the emergency department via private vehicle for evaluation right hand numbness. The patient provides the following history. She has been baking in the last couple of days and in the kitchen this morning while dipping pretzels in chocolate soft she developed sudden numbness in the right 4th and 5th fingers band within a very brief period of time the entire right hand felt numb, extending about 1 to 2 inches above the wrist. She may be felt a bit dizzy at that time but not significantly so. Symptoms resolved within 5 to 10 minutes and have not recurred. Next week she is going with her family to the [facility] and felt that it would be best to get checked out before traveling. She denies history of transient cerebral ischemia, cerebrovascular accident, and atrial fibrillation. Historically she has not had any issues with carpal or ulnar tunnel symptoms. She fractured her right wrist many years ago and still has hardware in place and she also reports having several trigger finger releases on that right hand. She is wondering if perhaps her symptoms may be due to overuse from all the baking to include much stirring of chocolate today. She denies vertigo, visual changes, facial droop, difficulties with speaking and swallowing, focal weakness, palpitations, and racing heart. She also denies fever, chills, sweats, abdominal pain, nausea, vomiting, diarrhea, and dysuria In the ED: Vital signs were stable on arrival. CMP and CBC were pretty unremarkable. Urinalysis was nitrate and leukocyte esterase positive with 6 to 10 WBC and 4+ bacteria. Head CT and CTA of the head and neck were without acute or significant findings. EKG showed sinus rhythm without acute ST segment depressions or elevations. She was given ceftriaxone for possible urinary tract infection and is being admitted in this setting for further workup. Review of Systems Review of Systems: 12 systems were reviewed and are negativ e except for as per HPI. [facility] Past Medical History Medical History (Updated 02/02/24 @ 22:01 by Zarina Ragsdale PA-C) Collagen vascular disease Essential hypertension Gastro-esophageal reflux disease without esophagitis Hypothyroidism, unspecified Interstitial lung disease Pulmonary nodule seen on imaging study Surgical History Surgical History (Updated 02/02/24 @ 21:53 by Zarina Ragsdale PA-C) History of cholecystectomy History of open reduction and internal fixation (ORIF) procedure repair of right wrist fracture Status post trigger finger release Family History Family History Mother Carcinoma of colon Sibling Patient's sister is in good health Father Incontinent of urine Heart disease Skin cancer Sibling , blood clot Blood clot in vein Social History Social History (Updated 02/02/24 @ 21:55 by Zarina Ragsdale PA-C) Social History: Surrogate medical decision maker: Beto Amado, spouse. Code status: Full code. Smoking status: Former smoker Second hand tobacco smoke exposure: No Alcohol intake: current Drinks per week: 7 Substance use: never Substance use type: does not use Do You Feel Safe in your Home?: Yes Lack of Transportation: No Lack of Food: Never True Current Housing: I Have Housing Concerned About Future Housing: No Difficulty Paying Gas/Electric Bills: No Difficulty Paying for Meds: No Currently Unemployed: No Education: Bachelor's Degree Difficulty w/ Childcare or Family Care: No Living arrangements: with family Additional living arrangements comments: lives with spouse in [place] Occupation/Education: 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 Spiritual care concerns: No Meds Home Medications and Allergies Home Medications Medication Instructions Recorded Confirmed Type calcium 600 mg (as 1 cap PO DAILY 03/21/19 02/02/24 History carbonate)-vitamin D3 5 mcg (200 unit) capsule (Calcium 600 + D(3)) potnhjxy-nmlt-lhsn 8 mg-folic 400 1 tablet PO DAILY 03/21/19 02/02/24 History mcg-K 50 mcg-lutein 300 mcg tablet (Centrum Silver Women) naproxen sodium 220 mg tablet 220 mg PO DAILY 03/21/19 02/02/24 History (Aleve) omeprazole 20 mg capsule,delayed 20 mg PO DAILY 03/21/19 02/02/24 History release bcocttkuqkh-jky-dlwnefhti-hrb 1 tablet PO Q12H 05/20/22 02/02/24 History 149-hyalur 500 mg-500 mg-66.7 mg tablet (Neolrntymqy-Ktrwzmcrvxp-TQJ (with antiox)) Lactobacillus 1 cap PO DAILY 06/21/22 02/02/24 History acidophilus-Bifidobac.animalis 2.5 billion cell capsule (Daily Probiotic) biotin 10,000 mcg chewable tablet 10,000 mcg PO DAILY 06/21/22 02/02/24 History (Hair, Skin and Nails (biotin)) psyllium husk (with sugar) 2 gram 1 wafer PO HS 06/21/22 02/02/24 History oral wafer (Metamucil Fiber Thin) lisinopril 10 mg tablet 10 mg PO DAILY #90 tabs 08/11/23 02/02/24 Rx levothyroxine 50 mcg tablet 50 mcg PO DAILY #90 tabs 10/27/23 02/02/24 Rx Allergies Allergy/AdvReac Type Severity Reaction Status Date / Time adhesive tape Allergy Unknown Unknown Verified 02/02/24 12:47 Sulfa (Sulfonamide Allergy Unknown Unknown Verified 02/02/24 12:47 Antibiotics) Vital Signs Vital Signs - 24 hr 02/02/24 10:59 02/02/24 11:17 02/02/24 12:42 Temperature 97.6 F 97.6 F 98.0 F Pulse Rate 90 81 83 Respiratory Rate 16 12 20 Blood Pressure 141/89 H 133/90 128/80 Pulse Oximetry 98 97 96 Oxygen Delivery Room Air 02/02/24 14:04 02/02/24 14:49 02/02/24 17:09 Temperature 97.8 F 97.9 F 97.7 F Pulse Rate 78 75 88 Respiratory Rate 20 23 H 20 Blood Pressure 167/83 H 156/82 H 142/80 H Pulse Oximetry 95 95 97 Oxygen Delivery Exam Narrative: General: Well-developed, nontoxic-appearing female in the semi-Weinberg position in bed. Weight: 77 kg. BMI: 27.4. HEENT: Normocephalic, atraumatic. PERRL, EOMI. Sclera anicteric. Oral mucosa moist. Oropharynx clear. Neck: Supple. No carotid bruits. Respiratory: Respirations are nonlabored. Lung sounds are a bit coarse at the bases but are clear to auscultation. Cardiovascular: Regular rate and rhythm with S1-S2. Gastrointestinal: Abdomen is soft, nontender, and nondistended with positive bowel sounds. No organomegaly. Skin: Warm and dry. No rash or lesions on limited exam. Extremities: No cyanosis, clubbing, or edema. Radial and pedal pulses intact. Neurological: Alert. Cranial nerves 2-12 are grossly intact. Speech is clear. No facial asymmetry. Normal faennc-az-fcrd and rapid alternating movements. Sensation intact throughout. Strength equal in upper and lower extremities. Gait not assessed. Psychiatric: Pleasant and cooperative with normal mood and affect. Judgment and insight intact. H&P: Results Labs Labs: Short CBC 02/02/24 Range/Units 12:41 WBC 6.8 (4.5-10.0) K/mm3 Hgb 14.5 (12.0-15.0) g/dL Hct 41.8 (37.0-47.0) % Plt Count 223 (150-375) k/mm3 BMP 02/02/24 12:41 Sodium 137 Potassium 4.1 Chloride 104 Carbon Dioxide 27 BUN 16 Creatinine 0.80 Glucose 86 Calcium 9.8 Cardiac Enzymes 02/02/24 02/02/24 Range/Units 12:41 15:55 Troponin I < 0.012 < 0.012 (0.000-0.034) ng/mL Liver Function 02/02/24 Range/Units 12:41 Total Bilirubin 0.7 (0.2-1.3) mg/dL AST 29 (14-36) U/L ALT 18 (6-35) U/L Alkaline Phosphatase 80 (38-126) U/L Albumin 4.2 (3.5-5.1) g/dL Urine 02/02/24 Range/Units 13:32 Urine Color Yellow (Yellow) Urine Appearance Clear (Clear) Urine pH 7.5 (5.0-9.0) Ur Specific [place] 1.009 (1.001-1.035) Urine Protein Negative (Negative) mg/dL Urine Glucose (UA) Negative (Negative) mg/dL Impressions Head CT 02/02/24 13:22 Impression: 1. No significant abnormality seen. Chest X-Ray 02/02/24 13:25 IMPRESSION: 1. Mild bibasilar opacities which could represent atelectasis or pneumonia. Head/Neck CTA 02/02/24 15:15 IMPRESSION: 1. Mild nonspecific cerebral white matter disease, which likely represents chronic small vessel ischemic disease. 2. No aneurysm or significant intracranial arterial stenosis. 3. 0% stenosis of the proximal internal carotid arteries relative to normal distal artery lumen diameters (NASCET criteria). Assessment and Plan Assessment and plan (1) Numbness of right hand: Code(s): R20.0 - Anesthesia of skin Status: Acute (2) Essential hypertension: Code(s): I10 - Essential (primary) hypertension Status: Acute (3) Gastro-esophageal reflux disease without esophagitis: Code(s): K21.9 - Gastro-esophageal reflux disease without esophagitis Status: Acute (4) Hypothyroidism, unspecified: Qualifiers: Hypothyroidism type: acquired Qualified Code(s): E03.9 - Hypothyroidism, unspecified Code(s): E03.9 - Hypothyroidism, unspecified Status: Acute (5) Collagen vascular disease: Code(s): M35.9 - Systemic involvement of connective tissue, unspecified Status: Acute (6) Abnormal urinalysis: Code(s): R82.90 - Unspecified abnormal findings in urine Status: Acute Plan The patient presented to the emergency department for evaluation of transient right hand numbness as detailed in HPI. Labs, imaging, EKG, and all reports were personally reviewed. Workup thus far has been unremarkable and she has not had recurrent symptoms. Differential diagnosis includes transient cerebral ischemia, repetitive strain injury from baking the last couple of days, versus less likely cerebrovascular accident. She is being monitored on telemetry overnight. Echocardiogram has been ordered. Neurology has been consulted for their input. Regarding the diagnosis of collagen vascular disease, this is poorly documented in her records but could put her at increased risk for stroke. She has been started on a baby aspirin. Check fasting lipids in a.m.. Blood pressures have been stable. She has no symptoms to suggest urinary tract infection thus no indication for antibiotics. Her home medications will be reviewed and resumed as appropriate. Findings and treatment plan were discussed with the patient. Questions were solicited and answered to satisfaction. The patient's medical management will be taken over by the hospitalist team in a.m. Quality VTE Prophylaxis VTE prophylaxis: mechanical ordered The patient has been admitted under observation status. Hospitalist MIPS Advance Care Plan I have confirmed that the patient's Advanced Care Plan is present, code status is documented, or surrogate decision maker is listed in patient medical record.: Yes Medication Reconciliation I have utilized all available resources to obtain, update and review the patients current medications (includes all prescriptions, OTC, herbals, cannabis, and nutritional supplements).: Yes
--- NOTE | 2024-02-02 17:21 | ADMGEN ---
This patient, Maira Amado, was admitted to [facility] Surg Room 331-01. Patient/family oriented to hospital policies and general routines including ID bracelet, bed and alarms, visiting hours, pain management, procedures, bathroom and other care routines, personal items, smoking policy, room service/diet, and visiting hours. Information on how to activate the Rapid Response Team has been discussed. Patient/Family are encouraged to report perceived risks to care and to ask questions if they do not understand what they are told or what they should do.
[2024-02-02 19:12] LABS: Troponin I < 0.012 ng/mL (0.000-0.034)
[2024-02-03] VITALS: PULSE 72
[2024-02-03 04:00] VITALS: PULSE 63
[2024-02-03] MEDS: LEVOTHYROXINE SODIUM 50 MCG TABLET PO (05:32)
[2024-02-03 05:47] VITALS: BP 120/68; PULSE 70; RESP 18; TEMP 36.1; O2SAT 97
[2024-02-03 07:09] LABS: Cholesterol 166 mg/dL (0-200); HDL Direct 79 mg/dL; Triglycerides 60 mg/dL (<150)
[2024-02-03 07:21] LABS: LDL Cholesterol Direct 50 mg/dL
[2024-02-03 08:03] VITALS: PULSE 66
[2024-02-03] MEDS: PANTOPRAZOLE 40 MG TABLET PO (08:31)
[2024-02-03] MEDS: ACIDOPHILUS/BULGARICUS CHEWABLE TABLET 1 TABLET BY MOUTH (08:31)
[2024-02-03] MEDS: lisinopriL 10 MG TABLET PO (08:43)
[2024-02-03 09:12] LABS: Free T4 Free Thyroxine Reflex 1.18 ng/dL (0.78-2.19)
[2024-02-03] MEDS: CALCIUM/VITAMIN D 500 MG/5 MCG (200 I.U.) TABLET PO (11:36)
[2024-02-03] MEDS: THERAPEUTIC MULTIVITAMINS/MINERALS TAB (*BKC) 1 TABLET PO (11:36)
[2024-02-03 12:00] VITALS: PULSE 78
[2024-02-03] MEDS: ASPIRIN 81 MG ENTERIC TABLET PO (13:48)
--- NOTE | 2024-02-03 13:49 | P.DS_ITS ---
DS: Admitting Diagnosis Discharge Date 02/03/2024 Admitting Diagnosis Paraesthesias of Right hand DS: Discharge Diagnosis Discharge Diagnosis (1) Numbness of right hand: Code(s): R20.0 - Anesthesia of skin Status: Acute (2) Essential hypertension: Code(s): I10 - Essential (primary) hypertension Status: Acute (3) Gastro-esophageal reflux disease without esophagitis: Code(s): K21.9 - Gastro-esophageal reflux disease without esophagitis Status: Acute (4) Hypothyroidism, unspecified: Qualifiers: Hypothyroidism type: acquired Qualified Code(s): E03.9 - Hypothyroidism, unspecified Code(s): E03.9 - Hypothyroidism, unspecified Status: Acute (5) Collagen vascular disease: Code(s): M35.9 - Systemic involvement of connective tissue, unspecified Status: Acute (6) Abnormal urinalysis: Code(s): R82.90 - Unspecified abnormal findings in urine Status: Acute DS: Summary Hospital Course Reason for hospitalization: Paraesthesias of Right hand Hospital Course: Patient was a 78-year-old right-handed female with hypertension, gastroesophageal reflux disease, hypothyroidism, collagen vascular disease, interstitial lung disease who presented to the emergency department via private vehicle for evaluation right hand numbness. The patient provides the following history. She has been baking in the last couple of days and in the kitchen this morning while dipping pretzels in chocolate soft she developed sudden numbness in the right 4th and 5th fingers band within a very brief period of time the entire right hand felt numb, extending about 1 to 2 inches above the wrist. She may be felt a bit dizzy at that time but not significantly so. Symptoms resolved within 5 to 10 minutes and have not recurred. Patient had fractured her right wrist 2 years ago and still has hardware in place and she also reports having several trigger finger releases on that right hand. She had been backing at home for the last 2 days I thought she may have aggravated her hand the associated symptoms only advanced up past her wrist but did not travel any further. She had denied any vertigo, visual changes, facial droop, difficulties with speaking and swallowing, focal weakness, palpitations, and racing heart. She also denies fever, chills, sweats, abdominal pain, nausea, vomiting, diarrhea, and dysuria Patient was admitted for further evaluation and observation. The only remarkable finding was a suspicion for UTI on her labs otherwise unremarkable. Patient CT head and CTA were negative and showed normal aging brain. Patient had no further episodes during her hospital stay and reported no deficits. Patient was discharged to home and advised to seek medical treatment if symptoms returned Status at Discharge Functional status at discharge: independent ambulation Overall status at discharge: patient is back to baseline Time Spent with Patient Time attestation: Total time spent providing and/or coordinating discharge services: Time spent: Greater than 30 minutes Exam Narrative: * GENERAL: Alert and oriented x 3 pleasant female. No acute distress. * EYES: EOMI. No scleral icterus. PERRLA. * HEENT: Moist mucous membranes. * LUNGS: Clear to auscultation bilaterally. No accessory muscle use. * CARDIOVASCULAR: Regular rate and rhythm. No murmur. No JVD. S1-S2 * ABDOMEN: Soft, non tenderness and non-distended. No palpable masses. * EXTREMITIES: No edema. Non-tender * SKIN: No rashes or lesions. Skin warm, dry. * NEUROLOGIC: No focal neurological deficits. CN II-XII grossly intact * PSYCHIATRIC: Appropriate mood and affect. Good judgement and insight. DS: Data Data Completed and Pending Labs on day of discharge: Labs from last 24 hours 02/03/24 02/02/24 02/02/24 05:31 18:45 15:55 Troponin I < 0.012 < 0.012 Triglycerides 60 Cholesterol 166 LDL Cholesterol Direct 50 HDL Direct 79 Vitamin B12 674.0 TSH (Reflex) 4.150 Free T4 1.18 Total T3 Pending Imaging Radiologist's impression: History: TIA, right arm weakness Technique: Axial non-contrast imaging of the brain was performed. Dose reduction technique was used on this scan by utilizing automated exposure control and iterative reconstruction technique. The dose-length product (DLP) was 605.33 mGy-cm. Findings: There is no evidence of intracranial hemorrhage, mass lesion, or acute infarct. Brain parenchyma appears normal. The ventricles and subarachnoid spaces are normal in size. The calvarium appears normal. The visualized paranasal sinuses and mastoid air cells are clear. Impression: No significant abnormality seen EXAMINATION: XR chest 1V DATE: 02/02/2024 13:23 INDICATION: Transient ischemic episode and lightheadedness TECHNIQUE: frontal view of the chest was obtained. COMPARISON: Chest radiograph dated and CT dated 01/25/2023 FINDINGS: Mild opacities at the bilateral lung bases with indistinctness to the left hemidiaphragm. Remainder the lungs are clear. No pulmonary edema, pleural effusion or pneumothorax. The cardiomediastinal silhouette is normal. Cholecystectomy clips in the right upper quadrant. IMPRESSION: 1. Mild bibasilar opacities which could represent atelectasis or pneumonia. EXAMINATION: CTA brain carotid DATE: 02/02/2024 15:14 INDICATION: Transient ischemic attack. TECHNIQUE: Computed tomographic angiography (CTA) of the head was performed with 100 mL Omnipaque-350 intravenous contrast. CTA of the neck was performed with intravenous contrast. Automated exposure control and iterative reconstruction technique were employed. The dose-length product was 843.80 mGy-cm. Maximum intensity projection and volume rendered 3D-reconstructions were created by the technologist on a separate workstation. COMPARISON: Head CT 02/02/2024 FINDINGS: HEAD CTA: There are scattered areas of low attenuation in the cerebral white matter. There is no intracranial hemorrhage, acute infarction, or abnormal intracranial mass lesion. The ventricles are normal in size. There is mild mucosal thickening in right maxillary sinus. The mastoid air cells are normal. The orbits are normal. The vertebral arteries are codominant. There is no significant stenosis of basilar artery or the posterior cerebral arteries. There is no significant stenosis of the intracranial internal carotid arteries or anterior or middle cerebral arteries. Anterior communicating artery is normal. The posterior communicating arteries are normal. There is no aneurysm. NECK CTA: There are no pathologically enlarged lymph nodes. There is no significant stenosis of the vertebral arteries. There is no visible plaque in the proximal internal carotid arteries. There is 0% stenosis of the proximal right internal carotid artery relative to normal distal artery lumen diameter (NASCET criteria). There is 0% stenosis of the proximal left internal carotid artery relative to normal distal artery lumen diameter. There is mild cervical spondylosis. IMPRESSION: 1. Mild nonspecific cerebral white matter disease, which likely represents chronic small vessel ischemic disease. 2. No aneurysm or significant intracranial arterial stenosis. 3. 0% stenosis of the proximal internal carotid arteries relative to normal distal artery lumen diameters (NASCET criteria). Discharge Plan Discharge Attending physician on discharge: John Rome Consulting providers: Casper Hernandez; Zarina Ragsdale; Kartik Garcia; Ronaldo Stovall; Jason Hennessy; Hung Hubbard V.; Javy Tena Discharging Clinician: Abimbola Headley Anticipated Discharge Date/Time: 02/03/24 13:40 Patient Disposition: Home, Self-Care Activity: may shower and as tolerated Diet: heart healthy Discharge Instructions: You are being discharged after evaluation for paraesthesias of your right hand, a CT head was performed that showed now acute abnormalities and CTA which showed no stenosis of your cartiod arteries bilateral. There is still a potential you my have experienced a TIA which has now resolved however due to the history of injury to your right wrist and hand I would recommend follow up with your orthopedic surgeon Dr. Dobbs for further evaluation. I did start you on a baby aspirin daily to reduce risk of stroke, your cholesterol was in with in normal range so I did not start you on a statin used for high cholesterol. I do encourage you use your right hand brace when performing repetitive movements for long periods of time. How can you care for yourself at home? ? Keep track of any new symptoms or changes in your symptoms. ? Rest until you feel better. ? Be safe with medicines. Take your medicines exactly as prescribed. Call your doctor if you think you are having a problem with your medicine. ? Do not drive after taking a prescription pain medicine. ? Ensure to follow-up with primary care physician as indicated and provide updated medication list provided to you at discharge. When should you call for help? Call 911 anytime you think you may need emergency care. For example, call if: ? You passed out (lost consciousness). Call your doctor now or seek immediate medical care if: ? You have new symptoms like fever, difficulty breathing, Chest pain, vomiting, or rash. ? You have new or different pain. ? You are confused and are having trouble thinking clearly. ? Your symptoms are getting worse. Watch closely for changes in your health, and be sure to contact your doctor if: ? You do not get better as expected. Patient Instructions: Antibiotic Form, Transient Ischemic Attack (DC), Arthralgia (ED), Arthritis (DC) Patient Language: Armenian Stand Alone Forms: General Discharge Information Follow-up/Referrals: Kishore Castano MD [Primary Care Provider] - 2 Weeks Discharge Medications: New aspirin 81 mg Tablet,Delayed Release (Dr/Ec) 81 mg PO QAM Qty: 30 0RF Continued omeprazole 20 mg capsule,delayed release(DR/EC) 20 mg PO DAILY naproxen sodium [Aleve] 220 mg tablet 220 mg PO DAILY Calcium 600 + D(3) 600 mg calcium- 200 unit capsule 1 cap PO DAILY Centrum Silver Women 8 mg iron-400 mcg-300 mcg tablet 1 tablet PO DAILY [id number]-[id number] [Dvwdwl-Jwgxw-LHA (with antiox)] 500-500-66.7 mg tablet 1 tablet PO Q12H Daily Probiotic 2.5 billion cell Capsule 1 cap PO DAILY Metamucil Fiber Thin 2 gram Wafer 1 wafer PO HS Hair, Skin and Nails (biotin) 10,000 mcg Tablet,Chewable 10,000 mcg PO DAILY lisinopril 10 mg tablet 10 mg PO DAILY Qty: 90 1RF levothyroxine 50 mcg tablet 50 mcg PO DAILY Qty: 90 1RF Date of admission: 02/02/24 15:31 Primary Care Provider: Kishore Castano Admitting Provider: John Rome Attending physician on admission: Abimbola Headley Condition: Stable Quality VTE Prophylaxis VTE prophylaxis: mechanical ordered -Patient's previous records reviewed on admission -ER notes reviewed in detail on admission -discussed all findings and current treatment plan with patient/Family/POA -Consultations reviewed for recommendations -Patient's disposition for safe discharge discussed with case therapist Dictation performed by [employer] direct speech recognition software, t herefore medical transcription editor variants and typographical errors may occur. Hospitalist MIPS Heart Failure (Exclusion) Patient has history of Heart Transplant or Left Ventricular Assistive Device?: No IF YES, STOP HERE Heart Failure (Qualifier) Patient has current or prior documentation of LVEF less than or equal to 40%, or mod/servere depressed LVSF?: No IF NO, STOP HERE
[2024-02-03 14:00] VITALS: BP 142/72; PULSE 68; RESP 20; TEMP 36.5; O2SAT 93
[2024-02-03 17:14] LABS: Total Triiodothyronine (T3) 1.14 NG/ML (0.97-1.69)
--- NOTE | 2024-02-03 22:02 | ECHO_ITS ---
Patient Info Name: Maira Amado Age: 78 years : 1945 Gender: Female Ht: 66 in Wt: 177 lbs BSA: 1.95 m2 HR: 66 bpm BP: 120 / 68 mmHg Heart Rhythm: Sinus Rhythm Technical Quality: Good Exam Date: 02/03/2024 9:38 AM Exam Location: Echo Lab Patient Status: Outpatient Admit Date: 02/02/2024 Staff Ordering Physician: Zarina Ragsdale PA-C [employer] M113: Thalia Julio RDCS Attending Provider: Abimbola Headley APRN Referring Physician: Jn MARIE; Exam Type: CA echo doppler w bubble study Study Info Indications - transient nuro sx, htn Complete two-dimensional, color flow and Doppler transthoracic echocardiogram is performed. Summary 1. Complete two-dimensional, color flow and Doppler transthoracic echocardiogram is performed. 2. Left ventricular chamber dimension is normal. 3. There is mildly increased left ventricular wall thickness. 4. Left ventricular systolic function is normal with an ejection fraction by Biplane Method of Discs of 61 %. 5. Grade I diastolic dysfunction of the left ventricle (impaired relaxation pattern). 6. Right ventricular systolic function is normal. 7. Right ventricular chamber dimension is normal. 8. Right atrial chamber dimension is normal. 9. Left atrial chamber dimension is normal. 10. The aortic root size at the sinus of Valsalva is normal. 11. The prox ascending aorta size is normal. 12. There is no aortic valve stenosis with a peak velocity of 116 cm/s, mean gradient of 3 mmHg, and aortic valve area of 2.4 cm2. 13. There is trace aortic valve regurgitation. 14. There is trace mitral valve regurgitation. 15. Agitated saline study did not reveal any ualgz-ma-hfdg shunting. Left Ventricle Left ventricular chamber dimension is normal. There is mildly increased left ventricular wall thickness. Left ventricular systolic function is normal with an ejection fraction by Biplane Method of Discs of 61 %. Grade I diastolic dysfunction of the left ventricle (impaired relaxation pattern). Right Ventricle Right ventricular chamber dimension is normal. Right ventricular systolic function is normal. Left Atria Left atrial chamber dimension is normal. Right Atria Right atrial chamber dimension is normal. Atrial Septum Agitated saline study did not reveal any wvafz-cf-dccz shunting. Aortic Valve The aortic valve is trileaflet. There is trace aortic valve regurgitation. There is no aortic valve stenosis with a peak velocity of 116 cm/s, mean gradient of 3 mmHg, and aortic valve area of 2.4 cm2. Mitral Valve There is trace mitral valve regurgitation. There is no mitral valve stenosis. Tricuspid Valve There is trace tricuspid valve regurgitation. No pulmonary hypertension, estimated pulmonary arterial systolic pressure is 24 mmHg. Pericardium/Pleural There is no pericardial effusion. Inferior Vena Cava Normal inferior vena cava with >50% collapse upon inspiration consistent with normal right atrial pressure, 5 mmHg. Aorta The aortic root size at the sinus of Valsalva is normal. The prox ascending aorta size is normal. Left Ventricular Outflow Tract Name Value Normal LVOT 2D LVOT Diameter 2.0 cm LVOT Doppler LVOT Peak Gradient 2 mmHg LVOT Mean Gradient 1 mmHg LVOT VTI 17 cm LVOT VTI/AV VTI Ratio 0.8 LVOT Stroke Volume 56 ml LVOT CO 3.9 l/min LVOT CI 2.0 l/min/m2 Tricuspid Valve Name Value Normal TV Regurgitation Doppler TR Peak Velocity 218 cm/s TR Peak Gradient 19 mmHg Estimated PAP/RSVP RA Pressure 5 mmHg <=5 PA Systolic Pressure 24 mmHg <36 RV Systolic Pressure 24 mmHg <36 Aortic Valve Name Value Normal AV Doppler AV Peak Velocity 116 cm/s AV Peak Gradient 5 mmHg AV Mean Gradient 3 mmHg AV VTI 23 cm AV Area (Cont Eq VTI) 2.4 cm2 >=3.0 AV Area (Cont Eq Alfredo) 2.1 cm2 AV Regurgitation 2D LVOT Area 3.2 cm2 Ventricles Name Value Normal LV Dimensions 2D/MM IVS Diastolic Thickness (2D) 1.1 cm 0.6-1.0 LVID Diastole (2D) 4.1 cm 3.8-5.2 LVIW Diastolic Thickness (2D) 1.1 cm 0.6-0.9 LVID Systole (2D) 2.7 cm 2.2-3.5 LVOT Diameter 2.0 cm LV Mass (2D Cubed) 148.90 g 67.00-162.00 LV Mass Index (2D Cubed) 76 g/m2 43-95 Relative Wall Thickness (2D) 0.55 LV Fractional Shortening/Ejection Fraction 2D/MM LV Fractional Shortening (2D) 34 % 27-45 LV EF (2D Teicholz) 63 % 54-74 LV Diastolic Volume (4C MOD) 76 ml LV EF (4C MOD) 65 % LV Diastolic Volume (2C MOD) 83 ml LV EF (2C MOD) 55 % LV Diastolic Volume (BP MOD) 81 ml 46-106 LV Diastolic Volume Index (BP MOD) 42 ml/m2 29-61 LV Systolic Volume (BP MOD) 32 ml 14-42 LV Systolic Volume Index (BP MOD) 16 ml/m2 8-24 LV EF (BP MOD) 61 % 54-74 LV Diastolic Length (4C) 8.1 cm LV Systolic Length (4C) 6.3 cm LV Stroke Volume (4C MOD) 50 ml Atria Name Value Normal LA Dimensions LA Volume (4C A-L) 23 ml LA Volume (BP A-L) 36 ml RA Dimensions RA Area (4C) 9.3 cm2 <=18.0 Report Signatures Amended by Avila Ferguson on 02/05/2024 17:47
== END 2024-02-03 14:20 | disposition home or self-care (01) ==
LOC: ANHED 12:25 → ANH3MEDSUR 16:31
PROVIDERS: Physician Assistant; Admitting Provider Internal Medicine; Emergency Provider Emergency Medicine; PCP Family Medicine; Visit Provider Nurse Practitioner Family
DX: R20.0 Anesthesia of skin (principal); I10 Essential (primary) hypertension; K21.9 Gastro-esophageal reflux disease without esophagitis; E03.9 Hypothyroidism, unspecified; M35.9 Systemic involvement of connective tissue, unspecified; R82.90 Unspecified abnormal findings in urine; J84.9 Interstitial pulmonary disease, unspecified; Z79.899 Other long term (current) drug therapy; Z86.711 Personal history of pulmonary embolism; Z87.81 Personal history of (healed) traumatic fracture; Z87.891 Personal history of nicotine dependence; Z98.890 Other specified postprocedural states
CPT/HCPCS: 36415; 70450; 70496; 70498; 71045; 80053; 80061; 81001; 82607; 83735; 84439; 84443; 84480; 84484; 85025; 85610; 85730; 87077; 87086; 87186; 93005; 93306; 96365; 96375; 99285; A9270; G0378; J0696; J7030; Q9967

== ENCOUNTER 2024-07-15 14:11 | Outpatient (CLI) | payer MEDICARE, SELFPAY ==
--- NOTE | ~2024-07-15 | MM_ITS ---
EXAMINATION: MM screening lgoan BI w velvet HISTORY: Screening TECHNIQUE: Craniocaudal and mediolateral oblique 3-D tomosynthesis images were obtained and synthetic 2-D images were generated. CAD analysis was submitted and interpreted. COMPARISON: Comparison to multiple prior studies sequentially, with oldest reviewed study dated 11/07. BREAST PARENCHYMAL COMPOSITION: Not dense: There are scattered areas of fibroglandular density. FINDINGS: There is no evidence of suspicious mass, calcification, or architectural distortion to sugg est malignancy in either breast. There has been no suspicious interval change. IMPRESSION: 1. No mammographic evidence of malignancy. 2. Recommend routine screening mammography in one year. BI-RADS Category 1: Negative Reviewed, dictated and finalized at location A.
--- OUTSIDE RECORDS SUMMARY | 2024-07-15 14:51 | XMS_ITS | Encounter Summary ---
Author Organization [facility] Health Address [address] [place] [address] Care Team Providers Care Elevator Constructor Electric Name Role Phone Unavailable Primary Care Provider Unavailabl e Encounter Details Date Type Department Care Team (Late st Contact Info) Description 03/22/2023 Lab Requisition [facility] - DermPath Lab [address] [place] [id number] Faby Dan DO [address] [place] [address] Social History Tobacco Use Types Packs/Day Years Used Date Smoking Tobacco: Never Assessed Comments Unknown Sex and Gender Information Value Date Recorded Sex Assigned at Not on file 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 Gender Identity Not on file Sexual Orientation Not on file documented as of this encounter Plan of Treatment Not on file documented as of this encounter Procedures Procedure Name Priority Date/Time Associated Diagnosis Comments DERMATOPATHOLOGY Routine 03/22/2023 2:05 PM BUSHLER documented in this encounter Results * DERMATOPATHOLOGY (03/22/2023 2:05 PM BUSHLER) Case Report Dermatopathology Report Case: [id number] Authorizing Provider: Faby Dan DO Collected: 03/22/2023 02:05 PM Ordering Location: [facility] DermPath Lab Received: 03/23/2023 01:19 PM Pathologist: Audra Jerome MD Specimens: A) - Skin, right medial thigh B) - Skin, left cheek 2:16 PM [facility] Final Diagnosis Specimen A. SKIN, right medial thigh: MOLLUSCUM CONTAGIOSUM (B08.1) Specimen B. SKIN, left cheek: SEBORRHEIC KERATOSIS, MACULAR (L82.1) 2:16 PM [facility] DERMATOPATHOLOGY [facility]ORATORY Clinical History A: Angioma R/O Atypia B: Lentigo R/O Atypia 2:16 PM [facility] DERMATOPATHOLOGY LABORATORY Gross Description Specimen A: Received is one formalin filled container labeled with the patient's name and designated right medial thigh. The specimen consists of a(2) pieces shave biopsy measuring 5x5x1, 5x5x1 mm. Jar 0. Specimen B: Received is one formalin filled container labeled with the patient's name and designated left cheek. The specimen consists of a shave biopsy measuring 7x5x1 mm. Jar 0. 2:16 PM [facility] DERMATOPATHOLOGY LABORATORY Microscopic Description Specimen A. SKIN, right medial thigh: There are several inverted lobules of squamous epithelium with numerous intracytoplasmic eosinophilic inclusions (molluscum bodies). Specimen B. SKIN, left cheek: Sections show a relatively broad, flat proliferation of small keratinocytes. The surface is gently papillated, and there is increased basilar pigmentation. 2:16 PM [facility] DERMATOPATHOLOGY LABORATORY Disclaimer An external and internal positive and negative controls are appropriate for the histochemical, immunohistochemical and immunofluorescence stain(s) in this case (if any), except where stated explicitly. The performance characteristics of the stain(s) cited in this report were developed and its performance characteristic determined by the Dermatopathology Laboratory at [facility], directed by Dr. Reece aGn. These tests need not be, and therefore are not, approved by the [place] Food and Drug Administration. The tests are used for clinical purposes. Billing Codes Specimen Charges Stain Charges 52301 78648 1 1 2:16 PM [facility] DERMATOPATHOLOGY LABORATORY Embedded Images 2:16 PM [facility] DERMATOPATHOLOGY LABORATORY Pathology/Cytology TISSUE SPECIMEN FROM SKIN / Unknown 03/22/2023 2:05 PM BUS[facility]ER 03/23/2023 1:19 PM BUSHLER Miscellaneous samples (specimen) TISSUE SPECIMEN FROM SKIN / Unknown 03/22/2023 2:05 PM BUSHLER 03/23/2023 1:19 PM BUSHLER us Faby Dan DO LAB - PATHOLOGY/CYTOLOGY ORDERABLES Final Result DERMATOPATHOLOGY LABORATORY [facility] - Department of Dermatology [facility] [address] [place] [address], [address] [place] [address], [facility] [phone] documented in this encounter Visit Diagnoses Not on filedocumented in this encounter
--- OUTSIDE RECORDS SUMMARY | 2024-07-15 14:51 | XMS_ITS | Clinical Summary ---
Author Organization [facility] Address [address] [place] [address] Care Team Providers Care Skirt Trimmer Name Role Phone Unavailable Primary Care Provider Unavailabl e Source Comments [facility],non-owned Affiliates and Associated Physician Practices is amultiple site organization consisting of ambulatory clinics and hospital sitesin [place], [place], [place] and [place]. This disclosure is being madepursuant to the Care Everywhere program and may not contain all information available regarding this patient. 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 Gender Identity Not on file Sexual Orientation Not on file Plan of Treatment Health Maintenance Due Date Last Done Comments BONE DENSITY TESTING 1945 HEPATITIS C SCREENING 12/01/1964 DTAP/TDAP/TD VACCINES (1 - Tdap) 1965 PNEUMOCOCCAL VACCINE 50+ (1 of 1 - PCV) 1996 ZOSTER VACCINE (1 of 2) 1996 Respiratory Syncytial Virus (RSV) Vaccine Pt: or over 60 yrs (1 - 1-dose 75+ series) 2021 COVID-19 VACCINE ( - 2023-2 5 season) 2023 DEPRESSION SCREENING 03/13/2024 MEDICARE AWV CALENDAR YEAR 2024 INFLUENZA VACCINE (Season Ended) 2024 HEPATITIS B VACCINE Aged Out No longe r eligible based on patient's age to complete this topic HIB VACCINE Aged Out No longer eligi ble based on patient's age to complete this topic HPV VACCINE Aged Out No longer eligi ble based on patient's age to complete this topic MENINGOCOCCAL (Group B) VACC INE SHARED DECISION-MAKING Aged Out No longer eligibl e based on patient's age to complete this topic MENINGOCOCCAL GROUPS A/C/Y/W VACCINE Aged Out No longer eligible b ased on patient's age to complete this topic Insurance [employer] MEDICARE ADV
--- OUTSIDE RECORDS SUMMARY | 2024-07-15 14:51 | XMS_ITS | Data Portability ---
Author Organization [facility] [place] Address [address] [place] [address] Care Team Providers Care Choreography Director Name Role Phone ELAINA STANFORD Primary Care Provider Assessment Encounter Date Assessment Date Assessment LastModified by Organization Details LastModified Time 01/13/2020 01/13/2020 Annual gynecological exam performed. Patient will come back in a year unless there are new symptoms. [email or web address] Not available 01/13/2020 11:28:50 01/13/2021 01/13/2021 Annual gynecological exam performed. Patient will come back in a year unless there are new symptoms. Not available 01/12/2021 11:18:21 01/17/2023 01/17/2023 Annual gynecological exam performed. Patient will come back in a year unless there are new symptoms. 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 Procedures None recorded . Surgeries None recorded . Imaging None recorded . Medication Orders None recorded . Patient TargetsNo targets recorded. Patient Instructions Encounter Date Encounter Id Patient Instructions Last Modified By Organization Details Last Modified Time 01/13/2020 [id number] [email or web address] Not available 11:53:55 Reason for Referral None Reported. Results Created Date Observation Date Name Description Value Unit Range Abnormal Flag Note LastModifiedBy Organization Detail LastModifiedTime 01/13/2001/14/2020 TSH, serum or plasm a TSH reflex to FT4 3.75 mU/L 0.27-4 .20 Not Available [facility]) [address], [place], [address], 01/14/2020 05:47:22 01/21/20 MAMMO , scree maureen, bilat eral No observ ation record ed. RUSTY Not Available 2019 22:02:13 03/16/19 22 MAMMO , scree maureen, bilat eral No observ ation record ed. [address] [facility] [address], [place], [address], 01/17/2023 11:24:41 06/30/19 22 DEXA, axial skele ton + verte bral fract ure asses sment No observ ation record ed. [address] [facility] [address], [place], [address], 01/17/2023 11:24:41 04/08/19 23 04/08/2022 MAMMO , scree maureen, bilat eral No observ ation record ed. [address], [place], [address], 01/17/2023 11:24:41 05/30/19 24 05/30/2023 imagi ng/di agnos tic resul t No observ ation record ed. [address], [place], [address], 01/21/2024 16:01:33 Result Notes None recorded. Problems Name Problem SNOMED Code Status Onset Date Resolution Date Notes Provider Name and Address Organization Details Recorded Time Screenin g for malignan t neoplasm of cervix Completed 201201/12/2021 Screening for malignant neoplasms of the cervix;Re corded Elsewhere : No Locati on: [facility] So urce: EHR Chron ic: N Practic e ID: 0001 Bill able Time: 11:00:00 AM Anastacia Omalley [facility] 1 11:13:[address] Concept Completed 201501/12/2021 Encntr for manager user interface exam (general) (routine) w/o abn findings; Recorded Elsewhere : No Locati on: [facility] So urce: EHR Chron ic: N Practic e ID: 0001 Bill able Time: 09:30:00 AM Anastacia [facility] 11:13:47 Screenin g for malignan t neoplasm of rectum Completed 201101/12/2021 Screening for malignant neoplasms of the rectum;Re corded Elsewhere : No Locati on: [facility] So urce: EHR Chron ic: N Practic e ID: 0001 Bill able Time: 08:30:00 AM Anastacia Omalley [facility] [address] 11:13:[address] Concept Completed 201501/12/2021 Encntr for general adult medical exam w/o abnormal findings; Recorded Elsewhere : No Locati on: [facility] So urce: EHR Chron ic: N Practic e ID: 0001 Bill able Time: 09:30:00 AM Anastacia [facility] 1 11:13:46 Speciali zed medical examinat ion Completed 201201/12/2021 Gynecolog ical Examinati on;Record ed Elsewhere : No Locati on: [facility] So urce: EHR Chron ic: N Practic e ID: 0001 Bill able Time: 11:00:00 AM Anastacia Omalley [facility] 1 11:13:49 Mammogra phy abnormal [id number] Completed 201401/12/2021 Unspecifi ed abnormal mammogram ;Recorded Elsewhere : No Locati on: [facility] So urce: EHR Chron ic: N Practic e ID: 0001 Bill able Time: 03:06:05 PM Anastacia bone [facility] 1 11:13:40 Evaluati on finding [id number] Completed 201601/12/2021 Oth abn and inconclus valerie findings on dx imaging of breast;Re corded Elsewhere : No Locati on: [facility] So urce: EHR Chron ic: N Practic e ID: 0001 Bill able Time: 02:05:[address] [facility] 11:13:37 Bone density finding [id number] Completed 201801/12/2021 Oth disrd of bone density and structure , unspecifi ed site;Cordell rded Elsewhere : No Locati on: [facility] So urce: EHR Chron ic: N Practic e ID: 0001 Bill able Time: 03:50:[address] [facility] 1 11:13:34 Microsco pic hematuri a [id number] Completed 201101/12/2021 MICROSCOP IC HEMATURIA ;Recorded Elsewhere : No Locati on: [facility] So urce: EHR Chron ic: N Practic e ID: 0001 Bill able Time: 08:30:[address] [facility] 1 11:13:41 Evaluati on finding Completed 201601/12/2021 Hematuria , unspecifi ed;Record ed Elsewhere : No Locati on: [facility] So urce: EHR Chron ic: N Practic e ID: 0001 Bill able Time: 02:00:00 PM Anastacia bone [facility] 1 11:13:38 Breast lump [id number] Completed 201601/12/2021 Lump in breast;Re corded Elsewhere : No Locati on: [facility] So urce: EHR Chron ic: N Practic e ID: 0001 Bill able Time: 03:45:00 PM Anastacia [facility] 11:13:35 Adult health examinat ion Completed 201401/12/2021 ROUTINE MEDICAL EXAM;Cordell rded Elsewhere : No Locati on: [facility] So urce: EHR Chron ic: N Practic e ID: 0001 Bill able Time: 10:00:00 AM Anastacia [facility] 11:13:32 Problem Notes None recorded. Procedures Surgical History Date Name Laterality Status Provider Name and Address Organization Details Recorded Time 01/21/20 Date of Last Mammogram completed [facility] 01/12/2021 11:15:50 12/29/19 19 completed [facility] 01/12/2021 11:19:58 12/22/19 19 Most Recent Bone Density completed [facility] 01/13/2021 10:09:43 12/16/19 17 completed [facility] 01/13/2021 10:09:43 12/16/19 17 Date of Last Colonoscopy completed [facility] 01/13/2021 10:09:43 08/25/19 17 Date of Last Pap Smear completed [facility] 01/12/2021 11:19:00 03/13/19 12 Colonoscopy completed [facility] 01/12/2021 11:28:05 01/26/20 02 Colonoscopy completed [facility] 01/12/2021 11:27:57 procedure on wrist completed [facility] 01/12/2021 11:27:17 Cholecystectomy completed [facility] 01/12/2021 11:27:25 Colonoscopy completed Anastacia Omalley [place] [facility] [place] [facility] 01/13/2021 10:09:55 Imaging Results Imaging Date Name Status LastModified by Organiz ation Details LastModified Time 01/21/2020 MAMMO, screening, bilateral completed [facility] Information not available 01/21/2020 22:02:13 03/16/2021 MAMMO, screening, bilateral completed [address] [facility] [address], [place], [address], 01/17/2023 11:24:41 06/29/2021 DEXA, axial skeleton + vertebral fracture assessment completed [address] [facility] [address], [place], [address], 01/17/2023 11:24:41 04/08/2022 MAMMO, screening, bilateral completed [address], [address], 01/17/2023 11:24:41 05/30/2023 imaging/diagnos tic result completed [address], [address], 01/21/2024 16:01:33 Procedure Notes None recorded. Medical Equipment None Reported. Allergies Allergen ID Allergen Name Allergen Category Reaction Reaction Severity Criticality Documentation Date Start Date Code Code System Note Provider Name and Address Organization Details Recorded Time 51536 latex environme nt,medica tion Not available Not available Not available 02/28/2020 94074 91 RxNorm Comme nt: [facility]at [facility]; Not Available [facility] 0 14:17:54 74418 sulfameth oxazole medicatio n Not available Not available Not available 02/28/2020 49328 RxNorm Comme nt: Locat [facility]: [facility]; Not Available [facility] 0 14:17:54 57388 trimethop rim medicatio n Not available Not available Not available 02/28/2020 70499 RxNorm Comme nt: [facility]at [facility]; [facility] 0 14:17:54 Medications Name Sig Start Date Stop Date Status Note LastModified by Organization Details LastModified Time biotin 5 mg capsule 08/06 completed Prescrib ed Elsewher e: Yes Loca tion: Frantz lopez [facility] odify By: isa more DateTime : 07/25/19 13 11:00:00 AM Not Available Not Available Not Available Claritin 10 mg tablet take 1 tablet by oral route every day 01/13 completed Prescrib ed Elsewher e: Yes Loca tion: Katie jessica [facility] odify By: jos Lopez ncounter DateTime : 09/21/19 19 10:30:00 AM Not Available Not Available Not Available triamcino lone acetonide 0.1 % topical cream APPLY 1 APPLICAT ION TOPICALL Y BID 01/17 completed Not Available Not Available Not Available levothyro xine 25 mcg tablet TAKE 1 TABLET BY MOUTH EVERY DAY 01/17 completed Not Available Not Available Not Available Macrobid 100 mg capsule take 1 capsule by oral route every 12 hours with food 10/26 completed Prescrib ed Elsewher e: No Locat ion: Katie jessica [facility] odify By: melisa more DateTime : 10/18/19 17 02:10:52 PM Not Available Not Available Not Available omeprazol e 10 mg capsule,d elayed release active Not Available Not Available Not Available levothyro xine 50 mcg tablet TAKE 1 TABLET BY MOUTH EVERY DAY active Not Available Not Available No t Available lisinopri l 10 mg tablet TAKE 1 TABLET BY MOUTH EVERY DAY active Not Available Not Available No t Available Glucosami ne 500 mg tablet active Prescrib ed Elsewher e: Yes Loca tion: Katie jessica [facility] odify By: selina Ibarra nter DateTime : 07/17/19 12 08:58:25 PM Not Available Not Available Not Available lisinopri l 5 mg tablet TAKE 1 TABLET BY MOUTH DAILY 01/17 completed Not Available Not Available Not Available Vitamin D2 1,250 mcg (50,000 unit) capsule take 1 capsule by oral route every week 08/24 completed Prescrib ed Elsewher e: Yes [facility] By: mickie grullon DateTime : 07/19/19 12 08:30:00 AM Not Available Not Available Not Available lisinopri l 2.5 mg tablet TAKE 2 TABLETS BY MOUTH DAILY 01/17 completed Not Available Not Available Not Available amoxicill in 875 mg-potass ium clavulana te 125 mg tablet TAKE 1 TABLET BY MOUTH EVERY 12 HOURS FOR 10 DAYS 01/17 completed Not Available Not Available Not Available Vitamins and Minerals tablet 08/24 completed Prescrib ed Elsewher e: Yes Loca tion: [facility] odify By: mickie grullon DateTime : 07/19/19 12 08:30:00 AM Not Available Not Available Not Available Calcio Fawad 500 mg tablet active Prescrib ed Elsewher e: Yes Loca tion: [facility] odify By: selina Ibarra ntfox DateTime : 07/17/19 12 08:58:25 PM Not Available Not Available Not Available Aleve 01/13 completed Not Available Not Available Not Available calcium 01/13 completed Not Available Not Available Not Available omeprazol e 01/13 completed Not Available Not Available Not Available Claritin 01/12 completed Not Available Not Available Not Available lisinopri l 01/13 completed Not Available Not Available Not Available Glucosami ne 01/13 completed Not Available Not Available Not Available Centrum 01/12 completed Not Available Not Available Not Available Hair,Skin and Nails active Not Available Not Available No t Available azelastin e 205.5 mcg (0.15 %) nasal spray USE 1 SPRAY IN EACH NOSTRIL EVERY NIGHT AT BEDTIME active Not Available Not Available No t Available Probiotic 10 billion cell capsule active Prescrib ed Elsewher e: Yes Loca tion: [facility] odify By: mickie grullon DateTime : 08/12/19 16 09:30:00 AM Not Available Not Available Not Available Probiotic 01/13 completed Not Available Not Available Not Available sodium,po tassium,m ag sulfates 17.5 gram-3.13 gram-1.6 gram oral soln TAKE DIRECTED 01/17 completed Not Available Not Available Not Available Aleve 220 mg capsule active Prescrib ed Elsewher e: Yes Loca tion: [facility] odify By: selina tz Encou nter DateTime : 07/17/19 12 08:58:25 PM Not Available Not Available Not Available Centrum Silver 0.4 mg-300 mcg-250 mcg tablet active Prescrib ed Elsewher e: Yes Loca tion: [facility] odify By: mickie Lopez ncounter DateTime : 08/25/19 17 02:00:00 PM Not Available Not Available Not Available Fluzone High-Dose Quad 2020-21 (PF) 240 mcg/0.7 mL IM syringe 01/13 completed Not Available Not Available Not Available BinaxNOW COVID-19 Ag Self Test kit TEST DIRECTED TODAY 01/17 completed Not Available Not Available Not Available Vitals Date Recorded Body height Body mass index (BMI) Body weight Provider Name and Address Organization Details Last Updated DateTime 01/13/2021 163.2 cm 29.8 kg/m2 01569.66 g Anastacia Omalley [facility] 01/13/2021 10:09:16 Date Recorded Systolic blood pressure Diastolic blood pressure Provider Name and Address Organization Details Last Updated DateTime 01/13/2021 132 mm[Hg] 84 mm[Hg] Marie White, [facility] [address], [place], [address], [facility] 01/13/2021 10:30:58 Date Recorded Body height Body mass index (BMI) Body weight Systolic blood pressure Diastolic blood pressure Provider Name and Address Organization Details Last Updated DateTime 01/17/2023 163.2 cm 29 kg/m2 81191.7 g 147 mm[Hg] 84 mm[Hg] Ivy Stevens [facility] 11:13:04 Date Recorded Body height Body mass index (BMI) Body weight Systolic blood pressure Diastolic blood pressure Provider Name and Address Organization Details Last Updated DateTime 01/13/2020 167.64 cm 27.4 kg/m2 42963.7 g 122 mm[Hg] 82 mm[Hg] Princess Emory [facility] 0 11:37:43 Social History Question Answer Notes LastModified by Organizat ion Details LastModified Time Tobacco Smoking Status Never Smoker Anastacia Omalley lizandro [facility] 01/13/2021 10:09:50 Do You Have An Advance Directive? Yes Information n ot available 01/13/2021 What Is Your Level Of Alcohol Consumption? Moderate Information not available 01/13/2021 How Many Years Have You Consumed Alcohol? 50 Information not available 01/13/2021 Are You Blind Or Do You Have Difficulty Seeing? No Information n ot available 01/12/2021 What Is Your Level Of Caffeine Consumption? Moderate Information not available 01/13/2021 How Much Tobacco Do You Chew? None Information not available 01/13/2021 In The 14 Days Before Symptom Onset, Have You Had Close Contact With A Laboratory-confirm ed COVID-19 While That Case Was Ill? No Information n ot available 01/13/2021 In The 14 Days Before Symptom Onset, Have You Had Close Contact With A Person Who Is Under Investigation For COVID-19 While That Person Was Ill? No Information not available 01/13/2021 Have You Been To An Area Known To Be High Risk For COVID-19? No Information not available 01/13/2021 Are You Deaf Or Do You Have Serious Difficulty Hearing? No Information not available 01/12/2021 What Type Of Diet Are You Following? REGULAR Information n ot available 01/12/2021 What Is The Highest Grade Or Level Of School You Have Completed Or The Highest Degree You Have Received? [id number] Information not available 01/13/2021 What Is Your Occupation? Retired Information not available 01/13/2021 Are There Any Guns Present In Your Home? Yes Information not available 01/13/2021 Do You Use Your Seat Belt Or Car Seat Routinely? Yes Information not available 01/12/2021 Do You Have Smoke And Carbon Monoxide Detectors In Your Home? Yes Information not available 01/12/2021 How Much Tobacco Do You Smoke? No Information not available 01/13/2021 Do You Feel Stressed (tense, Restless, Nervous, Or Anxious, Or Unable To Sleep At Night)? [id number] Information not available 01/13/2021 Do You Use Any Illicit Or Recreational Drugs? No Information not available 01/12/2021 Do You Use Sunscreen Routinely? No Information not available 01/13/2021 Have You Used IV Drugs? No Information not available 01/13/2021 Sex: Unknown Functional Status Question Answer Note LastModified by Organization D etails LastModified Time Are you able to walk? YESWOREST Information not available 01/12/2021 What is your exercise level? Moderate Information not available 01/13/2021 Mental Status None recorded. Family History Relationship Description Onset Age of this Age Resolved Age Notes LastModified by Organization Details LastModified Time Father Heart disease CAD [email or web address] Not available 2020 09:54:56 Mother Malignant tumor of colon Not available 2020 11:16:54 Mother Blood coagulation disorder [email or web address] Not available 2020 09:54:56 Medical History Condition Response Other Y Drug/Latex Allergies/Reactions Y Acid Reflux (GERD) Y Urinary Tract Infection Y Thyroid Problems Y Hypertension Y Gynecological History Statement/Question Response Date of Last Mammogram 01/21/2020 On BCP's at Conception? N N STIs/STDs N HPV Vaccine N 12/28/2018 Current Control Method Menopause Age at First Child 24 If Post Menopausal, Age at Menopause 89 2 Date of Last Colonoscopy 12/15/2016 Most Recent Bone Density 12/21/2018 Sexually Active? Y Date of Last Pap Smear 08/24/2016 Sexual Problems? N LMP Unknown 12/15/2016 N Obstetrics History GPAL:G 3 P 0 0 0 3 Type Value Living 3 Total 3 Past Encounters Encounter ID Performer Location Encounter Start Date Encounter Closed Date Diagnosis/Indication Diagnosis SNOMED-CT Code Diagnosis ICD10 Code Diagnosis Note [id number] Marie White [facility] [address] [address] 01/13/2020 11:26:57 01/13/2020 13:16:26 Gynecologic examination 56908214 Z01.419 Take Calcium with Vitamin D 12-1500mg daily. Do monthly self breast exams. It is advised to get annual flu shot in the fall and she could obtain at [facility] or [facility]. If you haven't received the Tdap vaccine in the last 10 years you should obtain one as well. Have mammogram yearly, bone density every 2-3 years and colonoscop y every 5-10 years depending on findings and history. Engage in daily exercise of low impact aerobic exercise 45-60 minutes 4-5 times weekly. Avoid tobacco and illicit drugs as well as using moderation with alcohol intake less than 1-2 8 oz beverages daily. This lifestyle behavior pattern will lead to less health conditions and longer life span. If BMI greater than 25 weight watchers or dietary consult advised. Questions have been answered. 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 No issues or concerns. Hypothyroidism 92430078 E03.9 Will update TSH levels. If steady can RF synthroid 25mcg. She will see if her PCP would like to further manage this therapy when she see's him next time she is there. [id number] [facility] [address] [address] 01/13/2021 09:54:13 01/13/2021 11:23:45 Gynecologic examination 41016160 Z01.419 Take Calcium with Vitamin D 12-1500mg daily. Do monthly self breast exams. It is advised to get annual flu shot in the fall and she could obtain at [facility] or [facility]. If you haven't received the Tdap vaccine in the last 10 years you should obtain one as well. Have mammogram yearly, bone density every 2-3 years and colonoscop y every 5-10 years depending on findings and history. Engage in daily exercise of low impact aerobic exercise 45-60 minutes 4-5 times weekly. Avoid tobacco and illicit drugs as well as using moderation with alcohol intake less than 1-2 8 oz beverages daily. This lifestyle behavior pattern will lead to less health conditions and longer life span. If BMI greater than 25 weight watchers or dietary consult advised. Questions have been answered. Patient appears to understand instructio ns, but if you have any further questions call or respond to this email Monogamous Ritani ip x 52yrs Norm Pap/hpv hx per pt Opts to d/c pap/hpv unless otherwise indicated per asccp USPSTF recommends against screening for cervical cancer in women older than 65yo who have had adequate prior screening & are not otherwise at high risk for cervical cancer.Col on-PCP managed. Family hx of colon cancer-mot her.Geneti c screen discussedN o issues or concerns. Postmenopa usal osteopenia [id number] M85.80 [id number] Marie White , [facility] [address] [address] 01/17/2023 10:51:13 01/17/2023 11:26:04 Gynecologic examination 95285671 Z01.419 Take Calcium with Vitamin D 12-1500mg daily. Do monthly self breast exams. It is advised to get annual flu shot in the fall and she could obtain at [facility] or [facility] take care clinic. If you haven't received the Tdap vaccine in the last 10 years you should obtain one as well. Have mammogram yearly, bone density every 2-3 years and colonoscop y every 5-10 years depending on findings and history. Engage in daily exercise of low impact aerobic exercise 45-60 minutes 4-5 times weekly. Avoid tobacco and illicit drugs as well as using moderation with alcohol intake less than 1-2 8 oz beverages daily. This lifestyle behavior pattern will lead to less health conditions and longer life span. If BMI greater than 25 weight watchers or dietary consult advised. Questions have been answered. Patient appears to understand instructio ns, but if you have any further questions call or respond to this email MonogaSabakat ip x 54yrs Norm Pap/hpv hx per pt Opts to d/c pap/hpv unless otherwise indicated per asccp USPSTF recommends against screening for cervical cancer in women older than 65yo who have had adequate prior screening & are not otherwise at high risk for cervical cancer.Col on-PCP managed. Family hx of colon cancer-mot her.Geneti c screen discussedN o issues or concerns.C BE/Pelvic exam [facility] Health Concerns Section Related Observation LastModified by Organization Detai ls LastModified Time None Recorded Concern Status LastModified by Organization Details LastModified Time None Recorded Advance Directives Directive Y: Payers Encounter Date Sequence Insurance Name Policy Number Policy Lynn Covered Member ID Lynn Member ID Guarantor Name 01/13/2020 1 [facility] (MEDICARE REPLACEMENT/AD VANTAGE - PPO) [id number] Maira Bains [facility] [id number] Maira [facility] 01/13/2021 1 [facility] (MEDICARE REPLACEMENT/AD VANTAGE - PPO) [phone] Maira Amado [id number] Maira Bains [facility] 01/13/2021 2 [place] Maira Amado [id number] Maira [facility] 01/17/2023 1 [employer] (MEDICARE REPLACEMENT PPO) [phone] Maira M [facility] [id number] Maira [facility] Notes Date Note Type Note Provider Name and Address Organization Details Recorded Time 01/13/2020 text/html Annual GYNReport ed bypatient.History: no gynecologic complaints Menstrual cycle:Postmenopaus al Urinary symptoms:No hematuria; No incontinence Vulva:No genital lesion Vagina:Normal vaginal discharge Breast:No breast pain; No breast lump; No nipple discharge Current Contraception:Garfield gamous relationship; Not sexually active Sexual complaints:No sexual complaints; No pain during intercourse; Normal libido Menopausal Symptoms:No menopausal symptoms; Normal vaginal lubrication Psychological symptoms:No depression; No anxiety; No PMDD Preventive measures:Encourage self breast examination; Encourage regular exercise; Encourage no tobacco use; Encourage regular mammograms starting age 40; Needs to schedule mammogram; Up to date on colonoscopy screening; Dexa 2018 Osteopenia Marie White, NP-BC [address], [place], [address], [place] [facility] 01/13/2020 11:55:41 01/13/2021 text/html Annual Community Pharmacist Post-MenopausalRep orted bypatient.Menopaus al Symptoms:no menopausal symptoms; normal vaginal lubrication Vaginal Bleeding:history of menopause having occurred; no history of post menopausal bleeding Urinary Symptoms:no hematuria; no incontinence; no nocturia; no urinary frequency Vulva:no genital lesion; no vulvar atrophy Vagina:normal vaginal discharge; no vaginal atrophy Breast:no breast lump; no nipple discharge; no breast pain Sexual Complaints:no sexual complaints Psychological Symptoms:no depression; no anxiety Preventive Measures:encourage regular mammograms starting age 40; encourage self breast examination; encourage regular exercise; encourage no tobacco use; needs to schedule mammogram; history of recent colonoscopy; needs to schedule bone density LY Ortiz [address], [place], [address], [facility] 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 Post-MenopausalRep orted bypatient.Menopaus al Symptoms:no menopausal symptoms; normal vaginal lubrication Vaginal Bleeding:history of menopause having occurred; no history of post menopausal bleeding Urinary Symptoms:no hematuria; no incontinence; no nocturia; no urinary frequency Vulva:no genital lesion; no vulvar atrophy Vagina:normal vaginal discharge; no vaginal atrophy Breast:no breast lump; no nipple discharge; no breast pain Sexual Complaints:no sexual complaints Psychological Symptoms:no depression; no anxiety Preventive Measures:encourage regular mammograms starting age 40; encourage self breast examination; encourage regular exercise; encourage no tobacco use; needs to schedule mammogram; history of recent colonoscopy colon 2021 SUSIE Ortiz [address], [place], [address], [facility] 01/17/2023 11:25:21 OBGyn Episode Ob Episode Information Episode Created Date Number of Fetuses Patient Bloodtype Patient rh Status Prepregnancy Weight lbs Domestic Partner Domestic Partner Phone Father Name Telemetry Rn Status 01/13/20 21 1 CLOSED Fetus Data First Name Last Name Admitted to NICU Weight (g) Sex Living Outcome Pediatric Complications Fetus ID Race Codes Race Delivery Type [id number] Vaginal Delivery Andrei Calculation Initial Adnrei Date Initial Exam Date Initial Exam Provider Initial Ultrasound Date Last Menstrual Period Date Ultra Sound Weeks Gestation 0 Eighteen To Twenty Week Andrei Update Ultra Sound Date Fundal Height At Umbil Quickening Date Ultra Sound Latest Weeks Gestation Final Andrei Confirmed By Final Andrei Confirmed Date Final Andrei Date Ultra Sound Latest Days Gestation 0 0 Menstrual History Last Menstrual Date Menses Monthly On Bcp Conception Prior Menses Frequency Hcg Plus Date Menarche Onset Age Delivery Information Delivery Date Delivery Type Labor Anesthesia Weeks Gestation Incision Type Labor Labor Length Hrs Delivered By Post Complications Tubal Sterilization Discharge Date Comments 3 Discharge Information Feeding Method Contraceptive Method Maternal HG B and HCT Levels Ob Episode Information Episode Created Date Number of Fetuses Patient Bloodtype Patient rh Status Prepregnancy Weight lbs Domestic Partner Domestic Partner Phone Father Name Telemetry Rn Status 01/13/20 21 1 CLOSED Fetus Data First Name Last Name Admitted to NICU Weight (g) Sex Living Outcome Pediatric Complications Fetus ID Race Codes Race Delivery Type [id number] Vaginal Delivery Andrei Calculation Initial Andrei Date Initial Exam Date Initial Exam Provider Initial Ultrasound Date Last Menstrual Period Date Ultra Sound Weeks Gestation 0 Eighteen To Twenty Week Andrei Update Ultra Sound Date Fundal Height At Umbil Quickening Date Ultra Sound Latest Weeks Gestation Final Andrei Confirmed By Final Andrei Confirmed Date Final Andrei Date Ultra Sound Latest Days Gestation 0 0 Menstrual History Last Menstrual Date Menses Monthly On Bcp Conception Prior Menses Frequency Hcg Plus Date Menarche Onset Age Delivery Information Delivery Date Delivery Type Labor Anesthesia Weeks Gestation Incision Type Labor Labor Length Hrs Delivered By Post Complications Tubal Sterilization Discharge Date Comments 1 Discharge Information Feeding Method Contraceptive Method Maternal HG B and HCT Levels Ob Episode Information Episode Created Date Number of Fetuses Patient Bloodtype Patient rh Status Prepregnancy Weight lbs Domestic Partner Domestic Partner Phone Father Name Telemetry Rn Status 01/13/20 21 1 CLOSED Fetus Data First Name Last Name Admitted to NICU Weight (g) Sex Living Outcome Pediatric Complications Fetus ID Race Codes Race Delivery Type [id number] Vaginal Delivery Andrei Calculation Initial Andrei Date Initial Exam Date Initial Exam Provider Initial Ultrasound Date Last Menstrual Period Date Ultra Sound Weeks Gestation 0 Eighteen To Twenty Week Andrei Update Ultra Sound Date Fundal Height At Umbil Quickening Date Ultra Sound Latest Weeks Gestation Final Andrei Confirmed By Final Andrei Confirmed Date Final Andrei Date Ultra Sound Latest Days Gestation 0 0 Menstrual History Last Menstrual Date Menses Monthly On Bcp Conception Prior Menses Frequency Hcg Plus Date Menarche Onset Age Delivery Information Delivery Date Delivery Type Labor Anesthesia Weeks Gestation Incision Type Labor Labor Length Hrs Delivered By Post Complications Tubal Sterilization Discharge Date Comments 5 Discharge Information Feeding Method Contraceptive Method Maternal HG B and HCT Levels
--- OUTSIDE RECORDS SUMMARY | 2024-07-15 14:52 | XMS_ITS | Clinical Summary ---
Author Organization [facility] Address [address] [place] [address] Phone Care Team Providers Care Distribution Operation Supervisor Name Role Phone Unavailable Primary Care Provider Unavailabl e Allergies Active Allergy Reactions Criticality Noted Date Comments Adhesive Tape-Silicones Rash Low 09/08/2017 Sulfa (Sulfonamide Antibiotics) Weakness Low 08/12 Medications predniSONE (DELTASONE) 10 mg tabletIndication s:every other day Take 10 mg by mouth see administration instructions. 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 Active omeprazole (PriLOSEC) 20 mg Capsule, Delayed Release(E.C.) Take 20 mg by mouth daily. Active glucosamine-brayan droitin (ARTHX DS) 500-400 mg Capsule Take 1 Capsule by mouth 2 times daily. Active geriatric multivitamin with iron & minerals (UNICAP SENIOR) Tablet Take 1 Tablet by mouth daily. Active calcium carbonate + vitamin D (CALTRATE+D) 600 mg(1,500mg) -400 unit Tablet Take 1 Tablet by mouth daily. Active naproxen (NAPROSYN) 250 mg tablet Take 250 mg by mouth daily. Active acidophillus citrus pectin 25 million cell/100 mg (LACTINEX) 25 million cell -100 mg Tablet Take 2 Tablets by mouth daily. Active Active Problems Problem Noted Date Diagnosed Date Acute cholecystitis 08/30/2017 Social History Tobacco Use Types Packs/Day Years Used Date Smoking Tobacco: Former Comments Unknown Sex and Gender Information Value Date Recorded Sex Assigned at Not on file Legal Sex Female 11:22 AM CDT Gender Identity Not on file Sexual Orientation Not on file Last Filed Vital Signs Vital Sign Reading Time Taken Comments Blood Pressure 143/84 09/08/2017 10:54 AM CDT Pulse 77 09/08/2017 10:54 AM CDT Temperature 36.7 C (98 F) 08/31/2017 11:19 AM CDT Respiratory Rate 16 08/31/2017 11:19 AM CDT Oxygen Saturation 92% 08/31/2017 11:19 AM CDT Inhaled Oxygen Concentration - - Weight 83.5 kg (184 lb) 09/08/2017 10:54 AM CDT Height 167.6 cm (5' 6 ) 09/08/2017 10:54 AM CDT Body Mass Index 29.7 09/08/2017 10:54 AM CDT Plan of Treatment Health Maintenance Due Date Last Done Comments DTAP/TDAP/TD VACCINES (1 - Tdap) 1965 PNEUMOCOCCAL VACCINE 50+ YEARS (1 of 1 - PCV) 12/06/18 97 ZOSTER VACCINE (1 of 2) 1996 OSTEOPOROSIS SCREENING 12/07/2011 RSV VACCINE (60+ or ) (1 - 1-dose 75+ series) 2021 INFLUENZA VACCINE (#1) 2023 Insurance [facility] [address] [address] Advance Directives For more information, please contact: [phone] Documents on File Type Date Recorded 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
== END 2024-07-15 14:12 | disposition home or self-care (01) ==
LOC: ANHIMG 14:14
PROVIDERS: PCP Family Medicine; Visit Provider Obstetrics & Gynecology
DX: Z12.31 Encounter for screening mammogram for malignant neoplasm of breast (principal)
CPT/HCPCS: 77063; 77067

== ENCOUNTER 2025-02-17 10:05 | Outpatient (CLI) | payer MEDICARE, SELFPAY ==
--- NOTE | ~2025-02-17 | DEXA_ITS ---
Bone Density Report Name: DILEEP LOVING Age: 79 Sex: Female Ethnicity: White Date of : 1945 Indication: osteopenia; height loss; rheumatoid arthritis; Referring Provider: ANG BEAVERS Study: Bone densitometry was performed. Exam Date: February 17, 2025 Accession number: [id number] Bone Density: Region BMD T-score Z-score Classification AP Spine(L1-L4) 0.907 -1.3 1.3 Osteopenia Femoral Neck (Left) 0.664 -1.7 0.6 Osteopenia Total Hip (Left) 0.850 -0.8 1.2 Normal Femoral Neck (Right) 0.608 -2.2 0.1 Osteopenia Total Hip (Right) 0.801 -1.2 0.8 Osteopenia Total Hip Mean 0.825 -1.0 1.0 Normal World Health Organization criteria for BMD impression classify patients as: Normal (T-score at or above -1.0), Osteopenia (T-score between -1.0 and -2.5), or Osteoporosis (T-score at or below -2.5). 10-year Fracture Risk(1): Major Osteoporotic Fracture 20% Hip Fracture 6.3% Reported Risk Factors: [place] (), Neck BMD=0.608, BMI=28.7, rheumatoid arthritis (1) FRAX(R) Version 3.08. Fracture probability calculated for an untreated patient. Fracture probability may be lower if the patient has received treatment. Previous Exams: Region Exam Age BMD T-score BMD Change BMD Change Date g/cm2 vs Baseline vs Previous AP Spine (L1-L4) 02/17/2025 79 0.907 -1.3 -0.022 (-2.4%) -0.022 (-2.4%) 06/16/2021 75 0.929 -1.1 Total Hip(Left) 02/17/2025 79 0.850 -0.8 -0.011 (-1.3%) -0.011 (-1.3%) 06/16/2021 75 0.861 -0.7 Total Hip(Right) 02/17/2025 79 0.801 -1.2 -0.012 (-1.5%) -0.012 (-1.5%) 06/16/2021 75 0.813 -1.1 *Denotes significance at 95% confidence level, LSC for AP Spine = 0.022 g/cm2, LSC for Total Hip = 0.027 g/cm2 # Denotes dissimilar scan types or analysis methods Clinical Information Provided by Patient: Has rheumatoid arthritis Has used the following medications: Vitamin D, Calcium Patient maximum height was 67.0 Menopause Age: 57 No regular weight bearing exercise Drinks caffeinated beverages Onset of menses at age 13 Number of children 3 Impression: The patient has low bone mass, based on the Right Femoral Neck T-score. The patient has an estimated ten-year risk of hip fracture of 6.3% and an estimated ten-year risk of major fracture of 20%, based on the WHO FRAX algorithm. No significant bone loss was observed. Discussion: BONE DENSITY IS LOW AT ONE OR MORE SKELETAL SITES. THE PATIENT'S BMD AND CLINICAL RISK FACTORS CONTRIBUTE TO THIS PATIENT'S HIGH RISK OF FRACTURE. This patient's lowest T-score is low at one or more skeletal sites. It meets the World Health Organization's (WHO) criteria for ?low bone mass? (T-score between -1.0 and -2.5). The patient's 10-year risk of hip fracture and 10 year risk of a major osteoporotic fracture as calculated by FRAX exceeds the threshold where pharmacological therapy is recommended by the National Osteoporosis Foundation (NOF). However, all treatment decisions require clinical judgment and consideration of individual patient factors, including patient preferences, comorbidities, previous drug use, risk factors not captured in the FRAX model (e.g., frailty, falls, vitamin D deficiency, increased bone turnover, interval significant decline in bone density) and possible under or overestimation of fracture risk by FRAX. The patient should follow a healthful lifestyle (good nutrition with adequate calcium and vitamin D, and appropriate weight-bearing exercise). Follow-Up: Consider a repeat BMD and Vertebral Fracture Assessment (VFA) exam in 2 years or sooner if medically necessary, to reassess this patient's status. Reported by: JIM on 02/17/2025 10:45:00 AM. Reviewed, dictated and finalized at location A.
== END 2025-02-17 10:06 | disposition home or self-care (01) ==
LOC: ANHFOHIMG 10:06
PROVIDERS: PCP Family Medicine; Visit Provider Nurse Practitioner Family
DX: Z78.0 Asymptomatic menopausal state (principal); M85.88 Other specified disorders of bone density and structure, other site; M85.852 Other specified disorders of bone density and structure, left thigh; M85.851 Other specified disorders of bone density and structure, right thigh
CPT/HCPCS: 77080

== ENCOUNTER 2025-02-21 09:47 | Outpatient (CLI) | payer MEDICARE, SELFPAY ==
--- NOTE | ~2025-02-21 | CT_ITS ---
EXAMINATION: CT diagnostic chest wo con DATE: 02/21/2025 10:01 INDICATION: Solitary pulmonary nodule TECHNIQUE: Computed tomography (CT) of the chest was performed without intravenous contrast. Additional 3D reconstructions utilizing coronal maximum intensity projection (MIP) were performed. Automated exposure control and iterative reconstruction technique were employed. The dose-length product was 91 .07 mGy-cm. COMPARISON: 02/26/2018 and 01/25/2023 FINDINGS: Mild emphysema. Calcified right middle lobe nodule and small calcified mediastinal lymph nodes consistent with old granulomatous disease. Consistent with old granulomatous disease. Unchanged likely benign 4 mm noncalcified subpleural nodule in the posterior right upper lobe. New 2 mm right upper lobe n odule. No pneumonia, pulmonary edema or pleural effusion. Heart size is normal. No pericardial effusion. Thoracic aorta is normal in caliber. No pathologically enlarged thoracic lymphadenopathy. Cholecystectomy clips in the gallbladder fossa. Unchanged small splenule along the posterior margin of the spleen. Visualized upper abdomen is otherwise unremarkable. Mild thoracic spondylosis. IMPRESSION: 1. Mild emphysema with new 2 mm right upper lobe nodules for which optional one year follow-up low-dose noncontrast chest CT could be obtained. Reviewed, dictated and finalized at location A. OTOLARYNGOLOGY
== END 2025-02-21 09:48 | disposition home or self-care (01) ==
LOC: MICIMG 09:47
PROVIDERS: PCP Family Medicine; Visit Provider Nurse Practitioner Family
DX: R91.1 Solitary pulmonary nodule (principal); Z87.891 Personal history of nicotine dependence; J43.9 Emphysema, unspecified
CPT/HCPCS: 71250